=== PATIENT | female | born 1945 | race Two or more races ===

== ENCOUNTER 2019-06-27 09:47 | Inpatient (IN) | payer MEDICARE ==
[2019-06-27] MEDS ORDERED: NORMAL SALINE 1000 ML 1,000 ML IV ONE ×2 (10:15→13:52)
--- NOTE | 2019-06-27 10:17 | ER Document Report ---
ED Medical Screen (RME) - General Chief Complaint: Abdominal Pain Stated Complaint: ABDOMINAL PAIN/BACK PAIN Time Seen by Provider: 06/27/19 10:09 Mode of Arrival: Wheelchair Information source: Patient Notes: Patient is here visiting out of town and complains of right sided abdominal pain that started after midnight. Patient with nausea and subjective fever. No vomiting or diarrhea, no urinary symptoms. Patient does state pain radiates to the back area. Last bowel movement was 2 days ago. Patient does have a history of asthma and diabetes although has not checked her blood sugar recently as she did not have her replacement cartridge for monitor. I have greeted and performed a rapid initial assessment of this patient. A comprehensive ED assessment and evaluation of the patient, analysis of test results and completion of the medical decision making process will be conducted by additional ED providers. - Related Data Allergies/Adverse Reactions: Penicillins Allergy (Mild, Verified 06/27/19 10:02) Home Medications: Sulcrafate, panprazole, carvedilol, atorvastatin, montelukast, captopril, dignoxin, furosemide, gabapentin, lantus, humalog, aspirin, potassium citrate, linzess, zetia, tylenol 3, mucinex, pro air inhaler, zenpap, symbicort, nitrofurantin, metformin, trilicity, restasis, loratidine, folic acids, multi- vitamin, b-complex, calcium, vitamin D, B-6, biotin, vitamin C, Nitro - Obtained from medication list on grandchild's phone Past Medical History - Social History Chew tobacco use (# tins/day): No Frequency of alcohol use: None Drug Abuse: None Physical Exam - Vital signs Vitals: Temp Pulse Resp BP Pulse Ox 98.3 F 113 H 22 H 106/59 L 96 06/27/19 09:53 06/27/19 09:53 06/27/19 09:53 06/27/19 09:53 06/27/19 09:53 - Abdominal Tenderness: Tender - Right side abdomen Course - Vital Signs Vital signs: Temp Pulse Resp BP Pulse Ox 98.3 F 113 H 22 H 106/59 L 96 06/27/19 09:53 06/27/19 09:53 06/27/19 09:53 06/27/19 09:53 06/27/19 09:53
[2019-06-27 11:01] LABS: ALBUMIN 4.1 g/dL (3.5-5.0); ALKALINE PHOSPHATASE 100 U/L (38-126); ANION GAP 10 (5-19); ASPARTATE AMINO TRANSFERASE 42 U/L (14-36); BILIRUBIN,DIRECT 0.1 mg/dL (0.0-0.4); BILIRUBIN,TOTAL 0.9 mg/dL (0.2-1.3); BLOOD UREA NITROGEN 29 mg/dL (7-20); CALCIUM 9.4 mg/dL (8.4-10.2); CARBON DIOXIDE 27 mmol/L (22-30); CHLORIDE 106 mmol/L (98-107); GLUCOSE 221 mg/dL (75-110); HEMATOCRIT 38.6 % (36.0-47.0); MEAN CORPUSCULAR HEMOGLOBIN 29.5 pg (27.0-33.4); MEAN CORPUSCULAR HGB CONC 33.7 g/dL (32.0-36.0); MEAN CORPUSCULAR VOLUME 88 fl (80-97); PLATELET COUNT 192 10^3/uL (150-450); POTASSIUM 4.2 mmol/L (3.6-5.0); RED CELL DISTRIBUTION WIDTH 14.2 % (11.5-14.0); WHITE BLOOD COUNT 8.8 10^3/uL (4.0-10.5)
[2019-06-27 11:26] LABS: ABSOLUTE LYMPHOCYTES# (MANUAL) 0.5 10^3/uL (0.5-4.7); ABSOLUTE MONOCYTES # (MANUAL) 0.1 10^3/uL (0.1-1.4); BAND NEUTROPHILS % (MANUAL) 2 % (3-5); BASOPHILS % (MANUAL) 0 % (0-2); EOSINOPHILS % (MANUAL) 0 % (0-6); LYMPHOCYTES % (MANUAL) 5 % (13-45); MONOCYTES % (MANUAL) 1 % (3-13); SEGMENTED NEUTROPHILS % (MAN) 91 % (42-78); TOTAL CELLS COUNTED 100
[2019-06-27 11:30] LABS: ANISOCYTOSIS SLIGHT; PLATELET COMMENT ADEQUATE; SMUDGE CELLS PRESENT; TOXIC VACUOLATION PRESENT
--- NOTE | 2019-06-27 11:34 | RADIOLOGY REPORT (SQ) ---
EXAM DESCRIPTION: ACUTE ABDOMEN SERIES COMPLETED DATE/TIME: 06/27/2019 11:24 am REASON FOR STUDY: r side abd pain, flank pain COMPARISON: None. NUMBER OF VIEWS: Three views. TECHNIQUE: Frontal chest, supine abdomen and upright abdomen radiographic images acquired. LIMITATIONS: None. FINDINGS: CHEST: Lungs clear of infiltrates. Cardiac silhouette size, marika unremarkable. Left-side d pacemaker. FREE AIR: None. No abnormal gas collections. BOWEL GAS PATTERN: Nonspecific nonobstructive pattern with few air-filled small bowel loops in the le ft upper quadrant. Gas and stool in the colon. Air-fluid level in the stomach. CALCIFICATIONS: No suspicious calcifications. HARDWARE: Laparoscopic ventral hernia repair SOFT TISSUES: No gross mass or suggestion of organomegaly. BONES: Degenerative convex rightward lumbar curvature OTHER: No other significant finding. IMPRESSION: Nonspecific bowel gas pattern No focal infiltrates TECHNICAL DOCUMENTATION: JOB ID: [id number] [employer]- All Rights Reserved Reading location - IP/workstation name: [email or web address]
[2019-06-27] MEDS ORDERED: MORPHINE SULFATE 10 MG/ML INJ IV ONE (11:58)
[2019-06-27] MEDS ORDERED: ONDANSETRON HCL INJ/PF 4 MG/2 ML SDV IV ONE (11:58)
[2019-06-27 12:33] LABS: CREATINE KINASE 119 U/L (30-135); DIGOXIN 0.51 ng/mL (0.8-2.0)
[2019-06-27] MEDS ORDERED: NEOSTIGMINE METHYLSULFATE 10 MG/10 ML VIAL ONE (12:43)
[2019-06-27] MEDS ORDERED: GLYCOPYRROLATE 1 MG/5 ML VIAL ONE (12:43)
[2019-06-27] MEDS ORDERED: ROCURONIUM BROMIDE INJ 50 MG/5 ML VIAL IV ONE (12:43)
[2019-06-27] MEDS ORDERED: DEXAMETHASONE SOD PHOSPHATE INJ 4 MG/1 ML VIAL ONE (12:43)
[2019-06-27] MEDS ORDERED: SUCCINYLCHOLINE CHLORIDE INJ 200 MG/10 ML VIAL ONE (12:43)
[2019-06-27] MEDS ORDERED: ONDANSETRON HCL INJ/PF 4 MG/2 ML SDV ONE (12:43)
--- NOTE | 2019-06-27 12:47 | EKG REPORT ---
SEVERITY:- ABNORMAL ECG - ATRIAL-SENSED VENTRICULAR-PACED RHYTHM : Confirmed by: Geovanny Viramontes 27-Jun-2019 12:45:44
--- NOTE | 2019-06-27 13:22 | ER Document Report ---
Entered by JOE TORIBIO SCRIBE 06/27/19 1154 Acting as scribe for:BARB REINOSO MD ED GI/ - General Chief Complaint: Abdominal Pain Stated Complaint: ABDOMINAL PAIN/BACK PAIN Time Seen by Provider: 06/27/19 10:09 Mode of Arrival: Wheelchair Information source: Patient Notes: This 74-year-old female patient presents to the emergency department today with complaints of right-sided abdominal pain which began last night at around midnight. Patient is Vietnamese-speaking and is being translated by multiple family members at bedside. The patient is not a great historian so history is difficult to obtain. When reviewing external pharmacy records, it appears that the patient has been taking doxycycline since March 29, which the patient reports is for "her urine". Patient reports a history of kidney stones that have require both lithotripsy and an open procedure for removal in the past. - Related Data Allergies/Adverse Reactions: Penicillins Allergy (Mild, Verified 06/27/19 10:02) Home Medications: Sulcrafate, panprazole, carvedilol, atorvastatin, montelukast, captopril, dignoxin, furosemide, gabapentin, lantus, humalog, aspirin, potassium citrate, linzess, zetia, tylenol 3, mucinex, pro air inhaler, zenpap, symbicort, nitrofurantin, metformin, trilicity, restasis, loratidine, folic acids, multi- vitamin, b-complex, calcium, vitamin D, B-6, biotin, vitamin C, Nitro - Obtained from medication list on grandchild's phone Past Medical History - General Information source: Patient - Social History Smoking Status: Never Smoker Cigarette use (# per day): No Chew tobacco use (# tins/day): No Frequency of alcohol use: None Drug Abuse: None Lives with: Family Family History: Reviewed & Not Pertinent Patient has suicidal ideation: No Patient has homicidal ideation: No - Past Medical History Cardiac Medical History: Reports: Hx Heart Attack Pulmonary Medical History: Reports: Hx Asthma Endocrine Medical History: Reports: Hx Diabetes Mellitus Type 2 Renal/ Medical History: Reports: Hx Kidney Stones Musculoskeletal Medical History: Reports Hx Arthritis Past Surgical History: Reports: Hx Cardiac Surgery - Pacer, Hx Orthopedic Surgery - Bilateral Knee Replacement 2008 Review of Systems - Review of Systems Constitutional: See HPI, Other - feels warm EENT: No symptoms reported Cardiovascular: No symptoms reported Respiratory: No symptoms reported Gastrointestinal: See HPI, Abdominal pain Genitourinary: No symptoms reported Female Genitourinary: No symptoms reported Musculoskeletal: No symptoms reported Skin: No symptoms reported Hematologic/Lymphatic: No symptoms reported Neurological/Psychological: No symptoms reported -: Yes All other systems reviewed and negative Physical Exam - Vital signs Vitals: Temp Pulse Resp BP Pulse Ox 98.3 F 113 H 22 H 106/59 L 96 06/27/19 09:53 06/27/19 09:53 06/27/19 09:53 06/27/19 09:53 06/27/19 09:53 - Notes Notes: PHYSICAL EXAMINATION: GENERAL: Well-nourished, no acute distress, appears very uncomfortable. HEAD: Atraumatic, normocephalic. EYES: Pupils equal round and reactive to light, extraocular movements intact, sclera anicteric, conjunctiva are normal. ENT: nares patent, oropharynx clear without exudates. Moist mucous membranes. NECK: Normal range of motion, supple without lymphadenopathy LUNGS: Breath sounds clear to auscultation bilaterally and equal. No wheezes rales or rhonchi. HEART: Regular rate and rhythm without murmurs ABDOMEN: Soft, very active bowel sounds. Very tender to palpate the mid to lower right abdomen with guarding and some rebound. Right upper quadrant does not appear to be tender, but palpating in the right upper quadrant causes d iscomfort in the lower abdomen.. EXTREMITIES: Normal range of motion, no pitting or edema. No cyanosis. NEUROLOGICAL: Cranial nerves grossly intact. Normal speech. Normal sensory, motor, and reflex exams. PSYCH: Normal mood, normal affect. SKIN: Skin is very warm, will ask for a rectal temperature to be obtained. Diffuse vitiligo appearance. Course - Vital Signs Vital signs: Temp Pulse Resp BP Pulse Ox 101.2 F H 113 H 22 H 106/59 L 96 06/27/19 13:50 06/27/19 09:53 06/27/19 09:53 06/27/19 09:53 06/27/19 09:53 - Laboratory Result Diagrams: 06/27/19 10:35 06/27/19 10:35 Laboratory results interpreted by me: 06/27/19 06/27/19 06/27/19 10:32 10:35 10:35 RDW 14.2 H Seg Neuts % (Manual) 91 H Band Neutrophils % 2 L Lymphocytes % (Manual) 5 L Monocytes % (Manual) 1 L BUN 29 H Glucose 221 H POC Glucose 220 H AST 42 H Digoxin 06/27/19 10:35 RDW Seg Neuts % (Manual) Band Neutrophils % Lymphocytes % (Manual) Monocytes % (Manual) BUN Glucose POC Glucose AST Digoxin 0.51 L - Diagnostic Test Radiology reviewed: Image reviewed, Reports reviewed - AAS does not show acute pathology. - EKG Interpretation by Me EKG shows normal: Sinus rhythm, Ash, Intervals, QRS Complexes, ST-T Waves Rate: Normal - 90 Rhythm: Other - Atrial sensed ventricular paced rhythm Discharge - Discharge Scribe Attestation: 06/27/19 13:53 I personally performed the services described in the documentation, reviewed and edited the documentation which was dictated to the scribe in my presence, and it accurately records my words and actions. I personally performed the services described in the documentation, reviewed and edited the documentation which was dictated to the scribe in my presence, and it accurately records my words and actions.
[2019-06-27 14:06] LABS: APPEARANCE,URINE CLEAR; BILIRUBIN,URINE NEGATIVE (NEGATIVE); COLOR,URINE YELLOW; GLUCOSE, URINE NEGATIVE (NEGATIVE); KETONES,URINE NEGATIVE (NEGATIVE); LEUKOCYTE ESTERASE,URINE TRACE (NEGATIVE); NITRITE,URINE NEGATIVE (NEGATIVE); PROTEIN,URINE NEGATIVE (NEGATIVE); URINE SPECIFIC GRAVITY 1.018; UROBILINOGEN,URINE NEGATIVE mg/dL (<2.0)
[2019-06-27] MEDS ORDERED: ACETAMINOPHEN 650 MG SUPP.RECT PR ONE (15:28)
--- NOTE | 2019-06-27 16:03 | RADIOLOGY REPORT (SQ) ---
EXAM DESCRIPTION: CT ABD/PELVIS WITH IV ORAL COMPLETED DATE/TIME: 06/27/2019 3:35 pm REASON FOR STUDY: Right lower quadrant pain, fever, leukocytosis COMPARISON: None. TECHNIQUE: CT scan of the abdomen and pelvis performed using helical scanning technique with oral co ntrast and with dynamic intravenous contrast injection. Images reviewed with lung, soft tissue, and b one windows. Reconstructed coronal and sagittal MPR images reviewed. Delayed images for evaluation of the urinary system also acquired. All images stored on PACS. All CT scanners at this facility use dose modulation, iterative reconstruction, and/or weight based d osing when appropriate to reduce radiation dose to as low as reasonably achievable (ALARA). [facility]: Dose Right [facility]: CareDose [facility]: Dose Right [facility]: Teradose 4D [facility]: invendo medical CONTRAST TYPE AND DOSE: contrast/concentration: Isovue mg/ml; Total Contrast Delivered: 83.0 ml; To alec Saline Delivered: 69.0 ml RENAL FUNCTION: BUN 29 creatinine 0.88. RADIATION DOSE: CT Rad equipment meets quality standard of care and radiation dose reduction techniq ues were employed. CTDIvol: 7.9 - 10.9 mGy. DLP: 1027 mGy-cm.. LIMITATIONS: None. FINDINGS: LOWER CHEST: No significant findings. No nodules or infiltrates. LIVER: Normal size. No masses. No dilated ducts. SPLEEN: Normal size. No focal lesions. PANCREAS: No masses. No significant calcifications. No adjacent inflammation or peripancreatic fluid collections. Pancreatic duct not dilated. GALLBLADDER: No identified stones by CT criteria. No inflammatory changes to suggest cholecystitis. ADRENAL GLANDS: 1 x 1.5 cm right adrenal nodule. RIGHT KIDNEY AND URETER: No solid masses. Small calcifications. No hydronephrosis or hydroureter. LEFT KIDNEY AND URETER: No solid masses. Cortical scarring. Small calcifications. No hydronephro sis or hydroureter. AORTA AND VESSELS: No aneurysm. No dissection. Renal arteries, SMA, celiac without stenosis. RETROPERITONEUM: No retroperitoneal adenopathy, hemorrhage or masses. BOWEL AND PERITONEAL CAVITY: No masses or inflammatory changes. No free fluid or peritoneal masses. APPENDIX: The appendix is slightly thickened, measuring 9.6 cm (axial series 3, image 71). On rainey l series 601, image 27 there is suggestion of mild inflammation. No abnormal fluid collection. PELVIS: No mass. No free fluid. Normal bladder. ABDOMINAL WALL: No masses. No hernias. Surgical mesh. BONES: No significant or acute findings. Degenerative changes in the spine. OTHER: No other significant finding. IMPRESSION: 1. THE APPENDIX IS SLIGHTLY THICKENED. POSSIBLE MILD PERIAPPENDICEAL INFLAMMATION. FINDINGS ARE SUG GESTIVE OF MILD EARLY APPENDICITIS. NO EVIDENCE OF PERFORATION OR ABSCESS. 2. NONOBSTRUCTING CALCULI IN THE KIDNEYS. CHRONIC SCARRING OF THE LEFT KIDNEY. 3. RIGHT ADRENAL NODULE. NONSPECIFIC. 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 4. OTHER CHRONIC FINDINGS ABOVE. NO OTHER SIGNIFICANT OR ACUTE FINDING IN THE ABDOMEN OR PELVIS O N CT SCAN WITH ORAL AND IV CONTRAST. TECHNICAL DOCUMENTATION: JOB ID: [id number] Quality ID # [id number]: Final reports with documentation of one or more dose reduction techniques (e.g., Au tomated exposure control, adjustment of the mA and/or kV according to patient size, use of iterative reconstruction technique) 2010 [employer]- All Rights Reserved Reading location - IP/workstation name: [email or web address]
[2019-06-27] MEDS ORDERED: LEVOFLOXACIN 750 MG/D5W RTU 750 MG/150 ML RTUPB IV ONE (16:36)
--- NOTE | 2019-06-27 17:47 | PDOC H&P ---
History of Present Illness Patient complains of: Abdominal pain History of Present Illness: HETAL MANUEL is a 74 year old female presenting with a 1 day history of acute onset right lower quadrant abdominal pain along with nausea and fever. Patient began to experience this pain last night and it has persisted and therefore she came in through the ER. The pain has decreased since being given narcotics. Patient had a similar episode of this pain several months ago and was apparently hospitalized and was noted with constipation on CT as per the patient's family. She was treated with Linzess. She has suffer from constipation for a number of years. She has had a colonoscopy done 3 years ago followed by another one 1 year ago and was noted with polyps on both of those colonoscopies. She does have a family history of colon cancer in her sister who in her 80s with colon cancer. Patient has noticed occasional blood per rectum with hard bowel movements in the past. 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 History of asthma but no history of cigarette smoking abuse. Past Medical History Cardiac Medical History: Reports: Coronary Artery Disease, Other - Pacemaker dependence Pulmonary Medical History: Reports: Asthma Endocrine Medical History: Reports: Diabetes Mellitus Type 2 Musculoskeltal Medical History: Reports: Arthritis Past Surgical History Past Surgical History: Reports: Hysterectomy, Orthopedic Surgery - Bilateral Knee Replacement 2008, Other - Abdominal plasty. Multiple interventions for kidney stones. Social History Lives with: Family Smoking Status: Never Smoker Electronic Cigarette use?: No Frequency of Alcohol Use: None Hx Recreational Drug Use: No Drugs: None Family History Family History: Reviewed & Not Pertinent Parental Family History Reviewed: Yes - Mother with breast cancer, father with liver cancer Children Family History Reviewed: Yes Sibling(s) Family History Reviewed.: Yes - Sister with colon cancer in her 80s. Medication/Allergy Allergies/Adverse Reactions: Penicillins Allergy (Mild, Verified 06/27/19 10:02) Review of Systems Constitutional: PRESENT: fever(s), weight loss - About 40 pound weight loss over the past several years. Gradual secondary to some eating habit changes Cardiovascular: PRESENT: as per HPI Respiratory: PRESENT: as per HPI - No current shortness of breath nor chest pain Genitourinary: PRESENT: as per HPI - Multiple episodes of kidney stones. Musculoskeletal: PRESENT: back pain Neurological: PRESENT: weakness Endocrine: PRESENT: other - History of what sounds like hypothyroidism in the past Physical Exam Vital Signs: Temp Pulse Resp BP Pulse Ox 101.2 F H 113 H 22 H 106/59 L 96 06/27/19 13:50 06/27/19 09:53 06/27/19 09:53 06/27/19 09:53 06/27/19 09:53 Intake & Output 06/26/19 06/27/19 06/28/19 06:59 06:59 06:59 Intake Total 1000 Balance 1000 Weight 72.575 kg General appearance: PRESENT: no acute distress, cooperative Eye exam: PRESENT: conjunctiva pink Neck exam: PRESENT: other - Supple with no masses and no tenderness Respiratory exam: PRESENT: clear to auscultation wilver Cardiovascular exam: PRESENT: RRR Pulses: PRESENT: normal radial pulses GI/Abdominal exam: PRESENT: other - Soft, nondistended, focal tenderness to palpation in the right lower quadrant with rebound and percussion tenderness. Extremities exam: PRESENT: other - No swelling and no tenderness Neurological exam: PRESENT: alert, awake, other - 5+ strength in all 4 extremities. Psychiatric exam: PRESENT: appropriate affect Skin exam: PRESENT: warm Results Laboratory Results: 06/27/19 10:35 06/27/19 10:35 06/27/19 06/27/19 06/27/19 10:35 10:35 13:40 WBC 8.8 RBC 4.40 Hgb 13.0 Hct 38.6 MCV 88 MCH 29.5 MCHC 33.7 RDW 14.2 H Plt Count 192 Seg Neutrophils % Not Reportable Sodium 143.3 Potassium 4.2 Chloride 106 Carbon Dioxide 27 Anion Gap 10 BUN 29 H Creatinine 0.88 Est GFR ( Amer) > 60 Glucose 221 H Calcium 9.4 Total Bilirubin 0.9 AST 42 H Alkaline Phosphatase 100 Total Protein 7.0 Albumin 4.1 Lipase 93.7 Urine Color YELLOW Urine Appearance CLEAR Urine pH 5.0 Ur Specific [place] 1.018 Urine Protein NEGATIVE Urine Glucose (UA) NEGATIVE Urine Ketones NEGATIVE Urine Blood NEGATIVE Urine Nitrite NEGATIVE Ur Leukocyte Esterase TRACE H Urine WBC (Auto) 3 Urine RBC (Auto) 0 06/27/19 06/27/19 10:35 10:35 Creatine Kinase 119 Troponin I < 0.012 Impressions: Acute Abdomen Series 06/27/19 10:15 IMPRESSION: Nonspecific bowel gas pattern No focal infiltrates Abdomen/Pelvis CT 06/27/19 11:55 IMPRESSION: 1. THE APPENDIX IS SLIGHTLY THICKENED. POSSIBLE MILD PERIAPPENDICEAL INFLAMMATION. FINDINGS ARE SUGGESTIVE OF MILD EARLY APPENDICITIS. NO EVIDENCE OF PERFORATION OR ABSCESS. 2. NONOBSTRUCTING CALCULI IN THE KIDNEYS. CHRONIC SCARRING OF THE LEFT KIDNEY. 3. RIGHT ADRENAL NODULE. NONSPECIFIC. 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 4. OTHER CHRONIC FINDINGS ABOVE. NO OTHER SIGNIFICANT OR ACUTE FINDING IN THE ABDOMEN OR PELVIS ON CT SCAN WITH ORAL AND IV CONTRAST. Assessment & Plan - Diagnosis (1) Appendicitis Qualifiers: Appendicitis type: acute appendicitis Is this a current diagnosis for this admission?: Yes Plan: Although unusual in this age group, CT scan and exam all consistent with acute appendicitis. The fact that she had a colonoscopy 1 year ago argues against atypical presentation of cecal cancer. We will proceed with laparoscopic appendectomy possible open appendectomy. I have had a long discussion with the patient via her family who acted as interpreters, about the risk and benefits of the surgery including risk of infection, bleeding, adjacent structure injury, heart lung and stroke complications, stump leak. They understand and agree to proceed.
[2019-06-27] MEDS ORDERED: BUPIVACAINE HCL 0.25 % INJ/PF (2.5 MG/1 ML) 30 ML VIAL ONE (17:56)
[2019-06-27] MEDS ORDERED: METRONIDAZOLE 500 MG/NS RTU 500 MG/100 ML RTUPB IV ONE (18:00)
[2019-06-27] MEDS ORDERED: GLUCAGON,HUMAN RECOMB 1 MG INJ IM PRN (18:08)
[2019-06-27] MEDS ORDERED: DEXTROSE 50%-WATER 25 GM/50 ML DISP.SYRIN IV PRN ×4 (18:08→20:29)
[2019-06-27] MEDS ORDERED: DEXTROSE 40% GEL 15 GM TUBE PO PRN ×4 (18:08→20:29)
[2019-06-27] MEDS ORDERED: MIDAZOLAM 2 MG/2 ML INJ ONE (18:15)
[2019-06-27] MEDS ORDERED: PROPOFOL INJ 200 MG/20 ML VIAL IV ONE (18:15)
[2019-06-27] MEDS ORDERED: HYDROMORPHONE HCL INJ/PF 2 MG/ML AMPULE ONE (18:15)
[2019-06-27] MEDS ORDERED: FENTANYL CITRATE INJ/PF 100 MCG/2 ML AMPUL ONE (18:15)
--- NOTE | 2019-06-27 18:16 | PDOC CONSULTATION ---
Consultation Consult Date: 06/27/19 Attending physician:: USHA KAPADIA Provider Consulted: FRANKLIN LENZ Consult reason:: Medical management History of Present Illness Admission Date/PCP: 06/27/19 17:53 No primary care Patient complains of: Abdominal pain, nausea vomiting History of Present Illness: HETAL MANUEL is a 74 year old female Past Medical History Cardiac Medical History: Reports: Coronary Artery Disease, Myocardial Infarction, Other - Pacemaker dependence Pulmonary Medical History: Reports: Asthma Endocrine Medical History: Reports: Diabetes Mellitus Type 2 Musculoskeltal Medical History: Reports: Arthritis Past Surgical History Past Surgical History: Reports: Hysterectomy, Orthopedic Surgery - Bilateral Knee Replacement 2008, Other - Abdominal plasty. Multiple interventions for kidney stones. Social History Information Source: Patient Lives with: Family Smoking Status: Never Smoker Electronic Cigarette use?: No Frequency of Alcohol Use: None Hx Recreational Drug Use: No Drugs: None Hx Prescription Drug Abuse: No - Advance Directive Resuscitation Status: Full Code Family History Family History: Other - Liver cancer, breast cancer Parental Family History Reviewed: Yes Children Family History Reviewed: Yes Sibling(s) Family History Reviewed.: Yes Medication/Allergy Allergies/Adverse Reactions: Penicillins Allergy (Mild, Verified 06/27/19 10:02) Review of Systems Constitutional: ABSENT: chills, fever(s), headache(s), weight gain, weight loss Eyes: ABSENT: visual disturbances Ears: ABSENT: hearing changes Cardiovascular: ABSENT: chest pain, dyspnea on exertion, edema, orthropnea, palpitations Respiratory: ABSENT: cough, hemoptysis Gastrointestinal: PRESENT: abdominal pain, nausea, vomiting. ABSENT: constipation, diarrhea, hematemesis, hematochezia Genitourinary: ABSENT: dysuria, hematuria Musculoskeletal: ABSENT: joint swelling Integumentary: ABSENT: rash, wounds Neurological: ABSENT: abnormal gait, abnormal speech, confusion, dizziness, focal weakness, syncope Psychiatric: ABSENT: anxiety, depression, homidical ideation, suicidal ideation Endocrine: ABSENT: cold intolerance, heat intolerance, polydipsia, polyuria Hematologic/Lymphatic: ABSENT: easy bleeding, easy bruising Physical Exam Vital Signs: Temp Pulse Resp BP Pulse Ox 98.1 F 75 18 130/54 H 97 06/27/19 17:00 06/27/19 17:00 06/27/19 17:00 06/27/19 17:00 06/27/19 17:00 Intake & Output 06/26/19 06/27/19 06/28/19 06:59 06:59 06:59 Intake Total 1000 Balance 1000 Weight 72.575 kg General appearance: PRESENT: no acute distress, well-developed, well-nourished Head exam: PRESENT: atraumatic, normocephalic Eye exam: PRESENT: conjunctiva pink, EOMI, PERRLA. ABSENT: scleral icterus Ear exam: PRESENT: normal external ear exam Mouth exam: PRESENT: moist, tongue midline Neck exam: ABSENT: carotid bruit, JVD, lymphadenopathy, thyromegaly Respiratory exam: PRESENT: clear to auscultation wilver. ABSENT: rales, rhonchi, wheezes Cardiovascular exam: PRESENT: RRR. ABSENT: diastolic murmur, rubs, systolic murmur Pulses: PRESENT: normal dorsalis pedis pul Vascular exam: PRESENT: normal capillary refill GI/Abdominal exam: PRESENT: firm, hypoactive bowel sounds, normal bowel sounds, rebound, tenderness. ABSENT: distended, guarding, mass, organolmegaly Rectal exam: PRESENT: deferred Extremities exam: PRESENT: full ROM. ABSENT: calf tenderness, clubbing, pedal edema Neurological exam: PRESENT: alert, awake, oriented to person, oriented to place, oriented to time, oriented to situation, CN II-XII grossly intact. ABSENT: motor sensory deficit Psychiatric exam: PRESENT: appropriate affect, normal mood. ABSENT: homicidal ideation, suicidal ideation Skin exam: PRESENT: dry, intact, warm. ABSENT: cyanosis, rash Results Laboratory Results: 06/27/19 10:35 06/27/19 10:35 06/27/19 06/27/19 06/27/19 10:35 10:35 13:40 WBC 8.8 RBC 4.40 Hgb 13.0 Hct 38.6 MCV 88 MCH 29.5 MCHC 33.7 RDW 14.2 H Plt Count 192 Seg Neutrophils % Not Reportable Sodium 143.3 Potassium 4.2 Chloride 106 Carbon Dioxide 27 Anion Gap 10 BUN 29 H Creatinine 0.88 Est GFR ( Amer) > 60 Glucose 221 H Calcium 9.4 Total Bilirubin 0.9 AST 42 H Alkaline Phosphatase 100 Total Protein 7.0 Albumin 4.1 Lipase 93.7 Urine Color YELLOW Urine Appearance CLEAR Urine pH 5.0 Ur Specific [place] 1.018 Urine Protein NEGATIVE Urine Glucose (UA) NEGATIVE Urine Ketones NEGATIVE Urine Blood NEGATIVE Urine Nitrite NEGATIVE Ur Leukocyte Esterase TRACE H Urine WBC (Auto) 3 Urine RBC (Auto) 0 06/27/19 06/27/19 10:35 10:35 Creatine Kinase 119 Troponin I < 0.012 Impressions: Acute Abdomen Series 06/27/19 10:15 IMPRESSION: Nonspecific bowel gas pattern No focal infiltrates Abdomen/Pelvis CT 06/27/19 11:55 IMPRESSION: 1. THE APPENDIX IS SLIGHTLY THICKENED. POSSIBLE MILD PERIAPPENDICEAL INFLAMMATION. FINDINGS ARE SUGGESTIVE OF MILD EARLY APPENDICITIS. NO EVIDENCE OF PERFORATION OR ABSCESS. 2. NONOBSTRUCTING CALCULI IN THE KIDNEYS. CHRONIC SCARRING OF THE LEFT KIDNEY. 3. RIGHT ADRENAL NODULE. NONSPECIFIC. 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 4. OTHER CHRONIC FINDINGS ABOVE. NO OTHER SIGNIFICANT OR ACUTE FINDING IN THE ABDOMEN OR PELVIS ON CT SCAN WITH ORAL AND IV CONTRAST. Assessment and Plan - Diagnosis (1) Appendicitis Qualifiers: Appendicitis type: acute appendicitis Is this a current diagnosis for this admission?: Yes Plan: 06/27/2019-going to [place] [facility] for laparoscopic appendectomy. We will follow-up after appendectomy for medical management (2) Abdominal pain Is this a current diagnosis for this admission?: Yes Plan: 06/27/2019-Dilaudid 0.5 mg IV every 3 hours as needed. Tylenol and Toradol as needed. (3) Type 2 diabetes mellitus Is this a current diagnosis for this admission?: Yes Plan: 06/27/2019-A1c in a.m. Sliding scale insulin before meals and at bedtime with a carbohydrate controlled diet after patient has returned from the OR we will continue all home medications at that time 2. (4) Nausea & vomiting Is this a current diagnosis for this admission?: Yes Plan: 06/27/2019 Zofran 4 mill grams IV every 8 hours as needed (5) UTI (urinary tract infection) Is this a current diagnosis for this admission?: Yes Plan: 06/27/2019-Levaquin 750 mg IV daily await urine cultures - Time Time Spent with patient: 35 or more minutes - Inpatient Certification Based on my medical assessment, after consideration of the patient's comorbidities, presenting symptoms, or acuity I expect that the services needed warrant INPATIENT care.: Yes I certify that my determination is in accordance with my understanding of Medicare's requirements for reasonable and necessary INPATIENT services [42 CFR 412.3e].: Yes Medical Necessity: Need for Pain Control, Need for IV Antibiotics, Need for Surgery
[2019-06-27] MEDS ORDERED: DIPHENHYDRAMINE HCL 50 MG/ML VIAL IV PRN (19:00)
[2019-06-27] MEDS ORDERED: FENTANYL CITRATE INJ/PF 100 MCG/2 ML AMPUL IV PRN ×2 (19:00)
[2019-06-27] MEDS ORDERED: PROMETHAZINE HCL INJ 25 MG/1 ML VIAL IV PRN (19:00)
[2019-06-27] MEDS ORDERED: MEPERIDINE HCL/PF INJ 25 MG/1 ML DISP.SYRIN IV PRN (19:00)
[2019-06-27] MEDS ORDERED: GLUCAGON,HUMAN RECOMB 1 MG INJ SUBCUT PRN (20:29)
[2019-06-27] MEDS ORDERED: ONDANSETRON HCL INJ/PF 4 MG/2 ML SDV IV PRN (20:29)
[2019-06-27] MEDS ORDERED: MORPHINE SULFATE 10 MG/ML INJ IV PRN (20:29)
[2019-06-27] MEDS: METRONIDAZOLE 500 MG/NS RTU 500 MG/100 ML RTUPB IV SCH (22:19)
[2019-06-27] MEDS: NORMAL SALINE 1000 ML 1,000 ML IV PRN (22:22)
[2019-06-27] MEDS ORDERED: INSULIN REG, HUMAN 100 UNIT/ML 3 ML VIAL (PYX) SUBCUT ONE (23:15)
--- NOTE | 2019-06-27 23:43 | PDOC PROGRESS REPORT ---
Subjective Progress Note for:: 06/27/19 Subjective:: Feels better. Less pain. Reason For Visit: APPENDICITIS Physical Exam Vital Signs: Temp Pulse Resp BP Pulse Ox 97.9 F 62 12 132/57 H 98 06/27/19 21:45 06/27/19 21:45 06/27/19 21:45 06/27/19 21:45 06/27/19 21:45 Intake & Output 06/26/19 06/27/19 06/28/19 06:59 06:59 06:59 Intake Total 4650 Output Total 550 Balance 4100 Weight 77.9 kg General appearance: PRESENT: no acute distress, cooperative Respiratory exam: PRESENT: clear to auscultation wilver Cardiovascular exam: PRESENT: RRR GI/Abdominal exam: PRESENT: other - Soft, nondistended, very mild right lower quadrant abdominal tenderness much improved from her preoperative exam. Results Laboratory Results: 06/27/19 10:35 06/27/19 10:35 06/27/19 06/27/19 06/27/19 10:35 10:35 13:40 WBC 8.8 RBC 4.40 Hgb 13.0 Hct 38.6 MCV 88 MCH 29.5 MCHC 33.7 RDW 14.2 H Plt Count 192 Seg Neutrophils % Not Reportable Sodium 143.3 Potassium 4.2 Chloride 106 Carbon Dioxide 27 Anion Gap 10 BUN 29 H Creatinine 0.88 Est GFR ( Amer) > 60 Glucose 221 H Calcium 9.4 Total Bilirubin 0.9 AST 42 H Alkaline Phosphatase 100 Total Protein 7.0 Albumin 4.1 Lipase 93.7 Urine Color YELLOW Urine Appearance CLEAR Urine pH 5.0 Ur Specific [place] 1.018 Urine Protein NEGATIVE Urine Glucose (UA) NEGATIVE Urine Ketones NEGATIVE Urine Blood NEGATIVE Urine Nitrite NEGATIVE Ur Leukocyte Esterase TRACE H Urine WBC (Auto) 3 Urine RBC (Auto) 0 06/27/19 06/27/19 10:35 10:35 Creatine Kinase 119 Troponin I < 0.012 Impressions: Acute Abdomen Series 06/27/19 10:15 IMPRESSION: Nonspecific bowel gas pattern No focal infiltrates Abdomen/Pelvis CT 06/27/19 11:55 IMPRESSION: 1. THE APPENDIX IS SLIGHTLY THICKENED. POSSIBLE MILD PERIAPPENDICEAL INFLAMMATION. FINDINGS ARE SUGGESTIVE OF MILD EARLY APPENDICITIS. NO EVIDENCE OF PERFORATION OR ABSCESS. 2. NONOBSTRUCTING CALCULI IN THE KIDNEYS. CHRONIC SCARRING OF THE LEFT KIDNEY. 3. RIGHT ADRENAL NODULE. NONSPECIFIC. 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 4. OTHER CHRONIC FINDINGS ABOVE. NO OTHER SIGNIFICANT OR ACUTE FINDING IN THE ABDOMEN OR PELVIS ON CT SCAN WITH ORAL AND IV CONTRAST. Assessment & Plan - Diagnosis (1) Appendicitis Qualifiers: Appendicitis type: acute appendicitis Is this a current diagnosis for this admission?: Yes Plan: Status post laparoscopic appendectomy. Patient looks good. Will likely start a diet in the morning. - Time Time Spent with patient: Less than 15 minutes
[2019-06-28] MEDS: METRONIDAZOLE 500 MG/NS RTU 500 MG/100 ML RTUPB IV SCH ×4 (03:18→21:33)
[2019-06-28 05:18] LABS: HEMATOCRIT 30.8 % (36.0-47.0); MEAN CORPUSCULAR HEMOGLOBIN 29.7 pg (27.0-33.4); MEAN CORPUSCULAR HGB CONC 34.1 g/dL (32.0-36.0); MEAN CORPUSCULAR VOLUME 87 fl (80-97); RED BLOOD COUNT 3.54 10^6/uL (3.72-5.28); RED CELL DISTRIBUTION WIDTH 14.3 % (11.5-14.0); WHITE BLOOD COUNT 12.7 10^3/uL (4.0-10.5)
[2019-06-28 05:35] LABS: HEMOGLOBIN 10.5 g/dL (12.0-15.5); PLATELET COUNT 137 10^3/uL (150-450)
[2019-06-28 05:38] LABS: ANION GAP 8 (5-19); BLOOD UREA NITROGEN 26 mg/dL (7-20); CARBON DIOXIDE 24 mmol/L (22-30); CHLORIDE 109 mmol/L (98-107); GLUCOSE 218 mg/dL (75-110); PHOSPHORUS 3.4 mg/dL (2.5-4.5); POTASSIUM 4.1 mmol/L (3.6-5.0)
[2019-06-28] MEDS: CIPROFLOXACIN 400 MG/D5W RTU 400 MG/200 ML RTUPB IV SCH ×2 (05:43→18:15)
[2019-06-28] MEDS: NORMAL SALINE 1000 ML 1,000 ML IV PRN (07:05)
[2019-06-28] MEDS ORDERED: CALCIUM GLUCONATE 1,000 MG in DEXTROSE 5%-WATER 50 ML IV ONE (08:00)
--- NOTE | 2019-06-28 08:03 | PDOC PROGRESS REPORT ---
Subjective Progress Note for:: 06/28/19 Subjective:: 06/28/2019-no complaints this a.m. Reason For Visit: APPENDICITIS Physical Exam Vital Signs: Temp Pulse Resp BP Pulse Ox 97.7 F 81 17 99/44 L 98 06/28/19 03:07 06/28/19 03:07 06/28/19 03:07 06/28/19 03:07 06/28/19 03:07 Intake & Output 06/27/19 06/28/19 06/29/19 06:59 06:59 06:59 Intake Total 4750 872 Output Total 550 Balance 4200 872 Weight 77.9 kg General appearance: PRESENT: no acute distress, well-developed, well-nourished Neck exam: ABSENT: carotid bruit, JVD, lymphadenopathy, thyromegaly Respiratory exam: PRESENT: clear to auscultation wilver. ABSENT: rales, rhonchi, wheezes Cardiovascular exam: PRESENT: RRR. ABSENT: diastolic murmur, rubs, systolic murmur Pulses: PRESENT: +1 pedal pulses bilateral Vascular exam: PRESENT: normal capillary refill GI/Abdominal exam: PRESENT: hypoactive bowel sounds, tenderness, other - Surgical dressing clean dry and intact Extremities exam: PRESENT: full ROM. ABSENT: calf tenderness, clubbing, pedal edema Neurological exam: PRESENT: alert, awake, oriented to person, oriented to place, oriented to time, oriented to situation, CN II-XII grossly intact. ABSENT: motor sensory deficit Psychiatric exam: PRESENT: appropriate affect, normal mood. ABSENT: homicidal ideation, suicidal ideation Skin exam: PRESENT: dry, intact, warm. ABSENT: cyanosis, rash Results Laboratory Results: 06/28/19 04:36 06/28/19 04:36 06/27/19 06/27/19 06/27/19 10:35 10:35 13:40 WBC 8.8 RBC 4.40 Hgb 13.0 Hct 38.6 MCV 88 MCH 29.5 MCHC 33.7 RDW 14.2 H Plt Count 192 Seg Neutrophils % Not Reportable Sodium 143.3 Potassium 4.2 Chloride 106 Carbon Dioxide 27 Anion Gap 10 BUN 29 H Creatinine 0.88 Est GFR ( Amer) > 60 Glucose 221 H Calcium 9.4 Phosphorus Magnesium Total Bilirubin 0.9 AST 42 H Alkaline Phosphatase 100 Total Protein 7.0 Albumin 4.1 Lipase 93.7 Urine Color YELLOW Urine Appearance CLEAR Urine pH 5.0 Ur Specific [place] 1.018 Urine Protein NEGATIVE Urine Glucose (UA) NEGATIVE Urine Ketones NEGATIVE Urine Blood NEGATIVE Urine Nitrite NEGATIVE Ur Leukocyte Esterase TRACE H Urine WBC (Auto) 3 Urine RBC (Auto) 0 06/28/19 06/28/19 04:36 04:36 WBC 12.7 H RBC 3.54 L Hgb 10.5 L D Hct 30.8 L MCV 87 MCH 29.7 MCHC 34.1 RDW 14.3 H Plt Count 137 L Seg Neutrophils % Sodium 140.8 Potassium 4.1 Chloride 109 H Carbon Dioxide 24 Anion Gap 8 BUN 26 H Creatinine 0.82 Est GFR ( Amer) > 60 Glucose 218 H Calcium 8.0 L Phosphorus 3.4 Magnesium 1.8 Total Bilirubin AST Alkaline Phosphatase Total Protein Albumin Lipase Urine Color Urine Appearance Urine pH Ur Specific [place] Urine Protein Urine Glucose (UA) Urine Ketones Urine Blood Urine Nitrite Ur Leukocyte Esterase Urine WBC (Auto) Urine RBC (Auto) 06/27/19 06/27/19 10:35 10:35 Creatine Kinase 119 Troponin I < 0.012 Impressions: Acute Abdomen Series 06/27/19 10:15 IMPRESSION: Nonspecific bowel gas pattern No focal infiltrates Abdomen/Pelvis CT 06/27/19 11:55 IMPRESSION: 1. THE APPENDIX IS SLIGHTLY THICKENED. POSSIBLE MILD PERIAPPENDICEAL INFLAMMATION. FINDINGS ARE SUGGESTIVE OF MILD EARLY APPENDICITIS. NO EVIDENCE OF PERFORATION OR ABSCESS. 2. NONOBSTRUCTING CALCULI IN THE KIDNEYS. CHRONIC SCARRING OF THE LEFT KIDNEY. 3. RIGHT ADRENAL NODULE. NONSPECIFIC. 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 4. OTHER CHRONIC FINDINGS ABOVE. NO OTHER SIGNIFICANT OR ACUTE FINDING IN THE ABDOMEN OR PELVIS ON CT SCAN WITH ORAL AND IV CONTRAST. Assessment and Plan - Diagnosis (1) Appendicitis Qualifiers: Appendicitis type: acute appendicitis Is this a current diagnosis for this admission?: Yes Plan: 06/27/2019-going to OR tonight for laparoscopic appendectomy. We will follow-up after appendectomy for medical management 06/28/2019-laparoscopic appendectomy yesterday. Appears to be doing well this morning. Will start diet and physical therapy. Await further recognitions per surgery. (2) Abdominal pain Is this a current diagnosis for this admission?: Yes Plan: 06/27/2019-Dilaudid 0.5 mg IV every 3 hours as needed. Tylenol and Toradol as needed. 06/28/2019-continue Dilaudid and morphine as needed (3) Type 2 diabetes mellitus Is this a current diagnosis for this admission?: Yes Plan: 06/27/2019-A1c in a.m. Sliding scale insulin before meals and at bedtime with a carbohydrate controlled diet after patient has returned from the OR we will continue all home medications at that time 2. 06/28/2019-A1c is 7.0. Continue carbohydrate controlled diet sliding scale insulin. Will place patient on appropriate oral antidiabetic medication at that time. (4) Nausea & vomiting Is this a current diagnosis for this admission?: Yes Plan: 06/27/2019 Zofran 4 mill grams IV every 8 hours as needed 06/28/2019-continue Zofran as needed (5) UTI (urinary tract infection) Is this a current diagnosis for this admission?: Yes Plan: 06/27/2019-Levaquin 750 mg IV daily await urine cultures 06/28/2019-continue Cipro twice daily - Time Time Spent with patient: 15-24 minutes - Inpatient Certification Based on my medical assessment, after consideration of the patient's comorbidities, presenting symptoms, or acuity I expect that the services needed warrant INPATIENT care.: Yes I certify that my determination is in accordance with my understanding of Medicare's requirements for reasonable and necessary INPATIENT services [42 CFR 412.3e].: Yes Medical Necessity: Need for Pain Control, Need for IV Antibiotics
[2019-06-28] MEDS: HYDROMORPHONE HCL INJ/PF 2 MG/ML AMPULE IV PRN ×2 (08:08→16:31)
[2019-06-28] MEDS: INSULIN REG, HUMAN 100 UNIT/ML 3 ML VIAL (PYX) SUBCUT SCH ×4 (08:16→21:33)
[2019-06-28] MEDS ORDERED: CALCIUM GLUCONATE 1000 MG/10 ML INJ IV ONE (09:00)
--- NOTE | 2019-06-28 10:16 | PDOC PROGRESS REPORT ---
Subjective Progress Note for:: 06/28/19 Subjective:: Feels much better. No nausea. A little bit hungry. Unable to urinate but has urgency. Reason For Visit: APPENDICITIS Physical Exam Vital Signs: Temp Pulse Resp BP Pulse Ox 97.7 F 68 20 127/58 H 99 06/28/19 08:10 06/28/19 08:10 06/28/19 08:10 06/28/19 08:10 06/28/19 08:10 Intake & Output 06/27/19 06/28/19 06/29/19 06:59 06:59 06:59 Intake Total 4750 1072 Output Total 550 Balance 4200 1072 Weight 77.9 kg General appearance: PRESENT: no acute distress, cooperative Respiratory exam: PRESENT: clear to auscultation wilver Cardiovascular exam: PRESENT: RRR GI/Abdominal exam: PRESENT: other - Soft, nondistended, very mild abdominal tenderness much improved from preoperative exam. Wounds are clean dry and intact. Extremities exam: PRESENT: other - Mild generalized edema. Results Laboratory Results: 06/28/19 04:36 06/28/19 04:36 06/27/19 06/27/19 06/27/19 10:35 10:35 13:40 WBC 8.8 RBC 4.40 Hgb 13.0 Hct 38.6 MCV 88 MCH 29.5 MCHC 33.7 RDW 14.2 H Plt Count 192 Seg Neutrophils % Not Reportable Sodium 143.3 Potassium 4.2 Chloride 106 Carbon Dioxide 27 Anion Gap 10 BUN 29 H Creatinine 0.88 Est GFR ( Amer) > 60 Glucose 221 H Calcium 9.4 Phosphorus Magnesium Total Bilirubin 0.9 AST 42 H Alkaline Phosphatase 100 Total Protein 7.0 Albumin 4.1 Lipase 93.7 Urine Color YELLOW Urine Appearance CLEAR Urine pH 5.0 Ur Specific [place] 1.018 Urine Protein NEGATIVE Urine Glucose (UA) NEGATIVE Urine Ketones NEGATIVE Urine Blood NEGATIVE Urine Nitrite NEGATIVE Ur Leukocyte Esterase TRACE H Urine WBC (Auto) 3 Urine RBC (Auto) 0 06/28/19 06/28/19 04:36 04:36 WBC 12.7 H RBC 3.54 L Hgb 10.5 L D Hct 30.8 L MCV 87 MCH 29.7 MCHC 34.1 RDW 14.3 H Plt Count 137 L Seg Neutrophils % Sodium 140.8 Potassium 4.1 Chloride 109 H Carbon Dioxide 24 Anion Gap 8 BUN 26 H Creatinine 0.82 Est GFR ( Amer) > 60 Glucose 218 H Calcium 8.0 L Phosphorus 3.4 Magnesium 1.8 Total Bilirubin AST Alkaline Phosphatase Total Protein Albumin Lipase Urine Color Urine Appearance Urine pH Ur Specific [place] Urine Protein Urine Glucose (UA) Urine Ketones Urine Blood Urine Nitrite Ur Leukocyte Esterase Urine WBC (Auto) Urine RBC (Auto) 06/27/19 06/27/19 10:35 10:35 Creatine Kinase 119 Troponin I < 0.012 Impressions: Acute Abdomen Series 06/27/19 10:15 IMPRESSION: Nonspecific bowel gas pattern No focal infiltrates Abdomen/Pelvis CT 06/27/19 11:55 IMPRESSION: 1. THE APPENDIX IS SLIGHTLY THICKENED. POSSIBLE MILD PERIAPPENDICEAL INFLAMMATION. FINDINGS ARE SUGGESTIVE OF MILD EARLY APPENDICITIS. NO EVIDENCE OF PERFORATION OR ABSCESS. 2. NONOBSTRUCTING CALCULI IN THE KIDNEYS. CHRONIC SCARRING OF THE LEFT KIDNEY. 3. RIGHT ADRENAL NODULE. NONSPECIFIC. 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 4. OTHER CHRONIC FINDINGS ABOVE. NO OTHER SIGNIFICANT OR ACUTE FINDING IN THE ABDOMEN OR PELVIS ON CT SCAN WITH ORAL AND IV CONTRAST. Assessment & Plan - Diagnosis (1) Appendicitis Qualifiers: Appendicitis type: acute appendicitis Is this a current diagnosis for this admission?: Yes Plan: Status post laparoscopic appendectomy. Will place a Murphy catheter for her urinary retention. We will try clear liquids. If tolerated will Hep-Lock her IV. Decreased hematocrit likely due to some intraoperative blood loss and hemodilution. We will repeat H&H later today and tomorrow morning. - Time Time Spent with patient: Less than 15 minutes
--- NOTE | 2019-06-28 10:31 | Operative Report ---
Operative Report DATE OF SURGERY: 06/27/19 PREOPERATIVE DIAGNOSIS: Appendicitis POSTOPERATIVE DIAGNOSIS: Appendicitis OPERATION: Laparoscopic appendectomy SURGEON: USHA KAPADIA ANESTHESIA: GA TISSUE REMOVED OR ALTERED: Appendix COMPLICATIONS: Liver laceration ESTIMATED BLOOD LOSS: 50 cc INTRAOPERATIVE FINDINGS: Inflamed distended nonperforated appendix. Cecal erythema. Dense midline adhesions with mesh. PROCEDURE: Informed consent was obtained. Patient was brought to the operating room and placed on the operating table in the supine position. After satisfactory induction of general anesthesia patient's abdomen was prepped and draped in usual sterile fashion. A mid upper midline incision was made and dissection was carried down fascia was sharply incised. underneath was some thickened tissue that I incised and it proved to be mesh. The surrounding tissue was cleared out with gentle blunt dissection. It was difficult to tell the extensiveness of the adhesions. Elizalde trocar was inserted and insufflation created. Laparoscopic view demonstrated dense adhesions all around this area with no free peritoneal space. There was absolutely no evidence of bowel injury. With the density of adhesions I abandoned this site. The mesh incision was closed with Prolene sutures. The overlying fascia was closed with interrupted Vicryl sutures. The skin was closed and occlusive dressing was applied. A subxiphoid incision was made at the midline and dissection was carried down and the fascia was sharply incised. Dissection was carried through the falciform ligament and the peritoneal cavity was entered. Elizalde trocar was then inserted pneumoperitoneum produced with good patient toleration. Laparoscopic view demonstrated dense wide midline adhesions with portions of visible incorporated mesh. Two 5 mm trochars were placed in the right lateral mid abdomen, lateral to the adhesions. Patient was placed in a Trendelenburg position with the right side up. The cecum had some erythema. The appendix appeared markedly distended and inflamed. There was no evidence of perforation. The atypical location of the trochars due to her adhesions made the procedure technically challenging. A plane was created between the mesoappendix and the appendix at the base of the appendix. The appendix was taken using a blue load of the Endo ZAHIRA stapling device flush with the cecum. The stump closure appeared secure. The tissue appeared viable. The mesoappendix was taken with a vascular load of the Endo ZAHIRA stapling device. Hemostasis appeared excellent. The operative field was lightly irrigated and irrigant aspirated out. The 2 right-sided 5 mm trochars were elba harinder under the direct vision of the laparoscope to ensure hemostasis. However upon trying to close the subxiphoid Elizalde trocar site fascial defect I noted blood at the base of the wound. It did not appear to be coming from the falciform ligament. The Elizalde trocar was reinserted pneumoperitoneum produced. The two 5 mm trochars were reinserted. Laparoscopic view of the Elizalde trocar site demonstrated no bleeding from the falciform ligament however at the site of the falciform ligament attachment to the liver, there was a liver laceration with bleeding, likely a traction related laceration. This region was cauterized with resultant hemostasis. There was another small laceration on the liver that was cauterized as well. Clotted blood around this region was aspirated as much as possible. Hemostasis appeared to be good. The Elizalde trocar site fascial defect was closed with interrupted Vicryl sutures. All skin incisions were closed with subcuticular interrupted Monocryl sutures. Marcaine was injected at the port sites. Patient tolerated procedure well with no complications other than the liver lacerations and was taken to the recovery area in stable condition.
[2019-06-28] MEDS: ACETAMINOPHEN 325 MG TABLET PO PRN (11:09)
[2019-06-28] MEDS ORDERED: VANCOMYCIN HCL 0 MG in DEXTROSE 5%-WATER 250 ML IV NR (11:30)
[2019-06-28] MEDS ORDERED: VANCOMYCIN HCL 1,250 MG in DEXTROSE 5%-WATER 250 ML IV ONE (16:00)
[2019-06-28] MEDS ORDERED: LEVOFLOXACIN 750 MG/D5W RTU 750 MG/150 ML RTUPB IV SCH (18:00)
[2019-06-28 18:15] LABS: HEMATOCRIT 29.3 % (36.0-47.0); HEMOGLOBIN 9.9 g/dL (12.0-15.5); MEAN CORPUSCULAR HEMOGLOBIN 29.6 pg (27.0-33.4); MEAN CORPUSCULAR HGB CONC 33.9 g/dL (32.0-36.0); MEAN CORPUSCULAR VOLUME 87 fl (80-97); PLATELET COUNT 126 10^3/uL (150-450); RED BLOOD COUNT 3.36 10^6/uL (3.72-5.28); RED CELL DISTRIBUTION WIDTH 14.8 % (11.5-14.0); WHITE BLOOD COUNT 9.4 10^3/uL (4.0-10.5)
[2019-06-29] MEDS: METRONIDAZOLE 500 MG/NS RTU 500 MG/100 ML RTUPB IV SCH ×4 (02:43→21:45)
[2019-06-29] MEDS: CIPROFLOXACIN 400 MG/D5W RTU 400 MG/200 ML RTUPB IV SCH ×2 (05:25→17:04)
[2019-06-29 06:26] LABS: HEMATOCRIT 29.3 % (36.0-47.0); MEAN CORPUSCULAR HEMOGLOBIN 29.8 pg (27.0-33.4); MEAN CORPUSCULAR HGB CONC 34.2 g/dL (32.0-36.0); MEAN CORPUSCULAR VOLUME 87 fl (80-97); PLATELET COUNT 123 10^3/uL (150-450); RED BLOOD COUNT 3.37 10^6/uL (3.72-5.28); RED CELL DISTRIBUTION WIDTH 14.4 % (11.5-14.0); WHITE BLOOD COUNT 7.5 10^3/uL (4.0-10.5)
[2019-06-29 06:40] LABS: ANION GAP 6 (5-19); BLOOD UREA NITROGEN 17 mg/dL (7-20); CALCIUM 8.5 mg/dL (8.4-10.2); CARBON DIOXIDE 24 mmol/L (22-30); CHLORIDE 110 mmol/L (98-107); GLUCOSE 138 mg/dL (75-110); POTASSIUM 3.7 mmol/L (3.6-5.0)
[2019-06-29] MEDS: VANCOMYCIN HCL 750 MG in DEXTROSE 5%-WATER 250 ML IV SCH ×2 (06:55→18:55)
--- NOTE | 2019-06-29 07:50 | PDOC PROGRESS REPORT ---
Subjective Progress Note for:: 06/29/19 Subjective:: 06/28/2019-no complaints this a.m. 06/29/2019-no complaints this a.m. Reason For Visit: APPENDICITIS Physical Exam Vital Signs: Temp Pulse Resp BP Pulse Ox 97.4 F 62 17 140/51 H 100 06/29/19 03:13 06/29/19 07:00 06/29/19 03:13 06/29/19 03:13 06/29/19 03:13 Intake & Output 06/28/19 06/29/19 06/30/19 06:59 06:59 06:59 Intake Total 4750 3895 Output Total 550 2050 Balance 4200 1845 Weight 77.9 kg 81.4 kg General appearance: PRESENT: no acute distress, well-developed, well-nourished Neck exam: ABSENT: carotid bruit, JVD, lymphadenopathy, thyromegaly Respiratory exam: PRESENT: clear to auscultation wilver. ABSENT: rales, rhonchi, wheezes Cardiovascular exam: PRESENT: RRR. ABSENT: diastolic murmur, rubs, systolic murmur Pulses: PRESENT: +1 pedal pulses bilateral Vascular exam: PRESENT: normal capillary refill GI/Abdominal exam: PRESENT: diminished bowel sounds, soft, tenderness, other Extremities exam: PRESENT: full ROM. ABSENT: calf tenderness, clubbing, pedal edema Neurological exam: PRESENT: alert, awake, oriented to person, oriented to place, oriented to time, oriented to situation, CN II-XII grossly intact. ABSENT: motor sensory deficit Psychiatric exam: PRESENT: appropriate affect, normal mood. ABSENT: homicidal ideation, suicidal ideation Skin exam: PRESENT: dry, intact, warm. ABSENT: cyanosis, rash Results Laboratory Results: 06/29/19 06:12 06/29/19 06:12 06/28/19 06/29/19 06/29/19 18:05 06:12 06:12 WBC 9.4 7.5 RBC 3.36 L 3.37 L Hgb 9.9 L 10.0 L Hct 29.3 L 29.3 L MCV 87 87 MCH 29.6 29.8 MCHC 33.9 34.2 RDW 14.8 H 14.4 H Plt Count 126 L 123 L Sodium 140.0 Potassium 3.7 Chloride 110 H Carbon Dioxide 24 Anion Gap 6 BUN 17 Creatinine 0.80 Est GFR ( Amer) > 60 Glucose 138 H Calcium 8.5 06/27/19 06/27/19 10:35 10:35 Creatine Kinase 119 Troponin I < 0.012 Impressions: Acute Abdomen Series 06/27/19 10:15 IMPRESSION: Nonspecific bowel gas pattern No focal infiltrates Abdomen/Pelvis CT 06/27/19 11:55 IMPRESSION: 1. THE APPENDIX IS SLIGHTLY THICKENED. POSSIBLE MILD PERIAPPENDICEAL INFLAMMATION. FINDINGS ARE SUGGESTIVE OF MILD EARLY APPENDICITIS. NO EVIDENCE OF PERFORATION OR ABSCESS. 2. NONOBSTRUCTING CALCULI IN THE KIDNEYS. CHRONIC SCARRING OF THE LEFT KIDNEY. 3. RIGHT ADRENAL NODULE. NONSPECIFIC. 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 4. OTHER CHRONIC FINDINGS ABOVE. NO OTHER SIGNIFICANT OR ACUTE FINDING IN THE ABDOMEN OR PELVIS ON CT SCAN WITH ORAL AND IV CONTRAST. Assessment and Plan - Diagnosis (1) Appendicitis Qualifiers: Appendicitis type: acute appendicitis Is this a current diagnosis for this admission?: Yes Plan: 06/27/2019-going to OR tonight for laparoscopic appendectomy. We will follow-up after appendectomy for medical management 06/28/2019-laparoscopic appendectomy yesterday. Appears to be doing well this mo rning. Will start diet and physical therapy. Await further recognitions per surgery. 06/29/2019-progressing well. Required no pain medication overnight. Continue to follow with surgery. (2) Abdominal pain Is this a current diagnosis for this admission?: Yes Plan: 06/27/2019-Dilaudid 0.5 mg IV every 3 hours as needed. Tylenol and Toradol as needed. 06/28/2019-continue Dilaudid and morphine as needed 06/29/2019-improved did not require pain medication overnight. Continue to follow (3) Type 2 diabetes mellitus Is this a current diagnosis for this admission?: Yes Plan: 06/27/2019-A1c in a.m. Sliding scale insulin before meals and at bedtime with a carbohydrate controlled diet after patient has returned from the OR we will continue all home medications at that time 2. 06/28/2019-A1c is 7.0. Continue carbohydrate controlled diet sliding scale insul in. Will place patient on appropriate oral antidiabetic medication at that time. 06/29/2019-stable continue current therapy Place patient on appropriate oral antidiabetic medications at discharge. (4) Nausea & vomiting Is this a current diagnosis for this admission?: Yes Plan: 06/27/2019 Zofran 4 mill grams IV every 8 hours as needed 06/28/2019-continue Zofran as needed 06/29/2019-stable continue Zofran as needed (5) UTI (urinary tract infection) Is this a current diagnosis for this admission?: Yes Plan: 06/27/2019-Levaquin 750 mg IV daily await urine cultures 06/28/2019-continue Cipro twice daily 06/29/2019-continue Cipro (6) Gram positive septicemia Is this a current diagnosis for this admission?: Yes Plan: 06/29/2019-blood cultures turn bottle showing gram-positive septicemia. V ancomycin initiated. Will repeat blood cultures. - Time Time Spent with patient: 15-24 minutes
[2019-06-29] MEDS: INSULIN REG, HUMAN 100 UNIT/ML 3 ML VIAL (PYX) SUBCUT SCH ×4 (08:00→21:51)
--- NOTE | 2019-06-29 09:44 | PDOC PROGRESS REPORT ---
Subjective Progress Note for:: 06/29/19 Subjective:: Patient in bed, got up once yesterday. Murphy catheter still in. Family at bedside. Tolerating clear liquids. Reason For Visit: APPENDICITIS Physical Exam Vital Signs: Temp Pulse Resp BP Pulse Ox 97.9 F 60 17 139/64 H 99 06/29/19 07:33 06/29/19 07:33 06/29/19 07:33 06/29/19 07:33 06/29/19 07:33 Intake & Output 06/28/19 06/29/19 06/30/19 06:59 06:59 06:59 Intake Total 4750 3895 250 Output Total 550 2050 Balance 4200 1845 250 Weight 77.9 kg 81.4 kg General appearance: PRESENT: no acute distress GI/Abdominal exam: PRESENT: other - Abdomen examined. All dressings dry and in tact. No peritoneal signs no rigidity. Results Laboratory Results: 06/29/19 06:12 06/29/19 06:12 06/28/19 06/29/19 06/29/19 18:05 06:12 06:12 WBC 9.4 7.5 RBC 3.36 L 3.37 L Hgb 9.9 L 10.0 L Hct 29.3 L 29.3 L MCV 87 87 MCH 29.6 29.8 MCHC 33.9 34.2 RDW 14.8 H 14.4 H Plt Count 126 L 123 L Sodium 140.0 Potassium 3.7 Chloride 110 H Carbon Dioxide 24 Anion Gap 6 BUN 17 Creatinine 0.80 Est GFR ( Amer) > 60 Glucose 138 H Calcium 8.5 06/27/19 06/27/19 10:35 10:35 Creatine Kinase 119 Troponin I < 0.012 Impressions: Acute Abdomen Series 06/27/19 10:15 IMPRESSION: Nonspecific bowel gas pattern No focal infiltrates Abdomen/Pelvis CT 06/27/19 11:55 IMPRESSION: 1. THE APPENDIX IS SLIGHTLY THICKENED. POSSIBLE MILD PERIAPPENDICEAL INFLAMMATION. FINDINGS ARE SUGGESTIVE OF MILD EARLY APPENDICITIS. NO EVIDENCE OF PERFORATION OR ABSCESS. 2. NONOBSTRUCTING CALCULI IN THE KIDNEYS. CHRONIC SCARRING OF THE LEFT KIDNEY. 3. RIGHT ADRENAL NODULE. NONSPECIFIC. 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 4. OTHER CHRONIC FINDINGS ABOVE. NO OTHER SIGNIFICANT OR ACUTE FINDING IN THE ABDOMEN OR PELVIS ON CT SCAN WITH ORAL AND IV CONTRAST. Assessment & Plan - Diagnosis (1) Appendicitis Qualifiers: Appendicitis type: acute appendicitis Is this a current diagnosis for this admission?: Yes Plan: Impression: Patient is postoperative day 2 status post laparoscopic appendectomy, doing well from a surgical standpoint. Challenges include obesity, and mobilization challenges. Patient growing gram-positive cocci from 2 blood cultures. Antibiotics altered to include vancomycin. Recommendations: 1. Increase of physical activity; we will get physical therapy involved. We will also get discharge planning involved. We will add incentive spirometer to pulmonary toilet regimen 2. Discontinue Dilaudid: Patient can take Tylenol p.o. 3. Patient tolerating a diet, will advance slowly. 4. Patient lives in [place]; granddaughter here in [place]; anticipate discharge home in the next 24 to 48 hours 5. We will leave Murphy catheter until patient up more reliably out of bed. (2) Morbid obesity Is this a current diagnosis for this admission?: Yes (3) Gram positive septicemia Is this a current diagnosis for this admission?: Yes - Time Time Spent with patient: 15-24 minutes
[2019-06-29] MEDS: FLUTICASONE/VILANTEROL 200-25 MCG/DOSE IH SCH (11:39)
[2019-06-29] MEDS: CAPTOPRIL 25 MG TABLET PO SCH (11:40)
[2019-06-29] MEDS: ACETAMINOPHEN 325 MG TABLET PO PRN ×2 (11:45→17:54)
[2019-06-29] MEDS: GABAPENTIN 300 MG CAPSULE PO SCH ×2 (14:08→21:50)
[2019-06-29] MEDS: DOCUSATE SODIUM 100 MG CAPSULE PO SCH (17:05)
[2019-06-29] MEDS: CYCLOSPORINE 0.05% OPH EMULSIO 0.4 ML DROPERETTE OU SCH (17:54)
[2019-06-29] MEDS: CARVEDILOL 12.5 MG TABLET PO SCH (21:50)
[2019-06-29] MEDS: EZETIMIBE 10 MG TABLET PO SCH (21:50)
[2019-06-29] MEDS: ATORVASTATIN CALCIUM 80 MG TABLET PO SCH (21:50)
[2019-06-29] MEDS ORDERED: (PENDING PHARMACY ID) (Budesonide/Formoterol Fumarate 1 PUFF) IH SCH (22:00)
[2019-06-30] MEDS: METRONIDAZOLE 500 MG/NS RTU 500 MG/100 ML RTUPB IV SCH ×2 (03:12→09:37)
[2019-06-30] MEDS: CIPROFLOXACIN 400 MG/D5W RTU 400 MG/200 ML RTUPB IV SCH (05:17)
[2019-06-30 06:32] LABS: ANION GAP 5 (5-19); BLOOD UREA NITROGEN 12 mg/dL (7-20); CARBON DIOXIDE 26 mmol/L (22-30); CHLORIDE 112 mmol/L (98-107); GLUCOSE 113 mg/dL (75-110); POTASSIUM 4.1 mmol/L (3.6-5.0)
[2019-06-30] MEDS: VANCOMYCIN HCL 750 MG in DEXTROSE 5%-WATER 250 ML IV SCH (06:32)
[2019-06-30] MEDS: LEVOTHYROXINE SODIUM 0.025 MG TABLET PO SCH (06:34)
[2019-06-30] MEDS: GABAPENTIN 300 MG CAPSULE PO SCH ×3 (06:34→22:18)
[2019-06-30 06:37] LABS: VANCOMYCIN,TROUGH 11.8 ug/mL (5.0-20.0)
[2019-06-30] MEDS: INSULIN REG, HUMAN 100 UNIT/ML 3 ML VIAL (PYX) SUBCUT SCH ×4 (08:12→22:20)
[2019-06-30] MEDS: FLUTICASONE/VILANTEROL 200-25 MCG/DOSE IH SCH (09:35)
[2019-06-30] MEDS: ASPIRIN 81 MG TABLET, ENT COATED PO SCH (09:36)
[2019-06-30] MEDS: CARVEDILOL 12.5 MG TABLET PO SCH ×2 (09:36→22:18)
[2019-06-30] MEDS: CAPTOPRIL 25 MG TABLET PO SCH (09:36)
[2019-06-30] MEDS: DIGOXIN 0.125 MG TABLET PO SCH (09:36)
[2019-06-30] MEDS: DOCUSATE SODIUM 100 MG CAPSULE PO SCH ×2 (09:36→17:34)
[2019-06-30] MEDS: CYCLOSPORINE 0.05% OPH EMULSIO 0.4 ML DROPERETTE OU SCH ×2 (09:36→17:33)
[2019-06-30] MEDS ORDERED: CAPTOPRIL PO SCH (10:00)
--- NOTE | 2019-06-30 10:36 | PDOC PROGRESS REPORT ---
Subjective Progress Note for:: 06/30/19 Subjective:: Feels well. No complaints. Reason For Visit: APPENDICITIS Physical Exam Vital Signs: Temp Pulse Resp BP Pulse Ox 97.3 F 60 16 152/86 H 98 06/30/19 07:57 06/30/19 07:57 06/30/19 07:57 06/30/19 07:57 06/30/19 07:57 Intake & Output 06/29/19 06/30/19 07/01/19 06:59 06:59 06:59 Intake Total 3895 2440 450 Output Total 2050 3900 Balance 1845 -1460 450 Weight 81.4 kg 80.6 kg General appearance: PRESENT: no acute distress, cooperative Respiratory exam: PRESENT: clear to auscultation wilver Cardiovascular exam: PRESENT: RRR GI/Abdominal exam: PRESENT: other - Soft, nondistended, nontender to palpation. Wound clean dry and intact. Results Laboratory Results: 06/29/19 06:12 06/30/19 05:33 06/30/19 05:33 Sodium 143.4 Potassium 4.1 Chloride 112 H Carbon Dioxide 26 Anion Gap 5 BUN 12 Creatinine 0.81 Est GFR ( Amer) > 60 Glucose 113 H Calcium 9.0 06/27/19 06/27/19 10:35 10:35 Creatine Kinase 119 Troponin I < 0.012 Impressions: Acute Abdomen Series 06/27/19 10:15 IMPRESSION: Nonspecific bowel gas pattern No focal infiltrates Abdomen/Pelvis CT 06/27/19 11:55 IMPRESSION: 1. THE APPENDIX IS SLIGHTLY THICKENED. POSSIBLE MILD PERIAPPENDICEAL INFL AMMATION. FINDINGS ARE SUGGESTIVE OF MILD EARLY APPENDICITIS. NO EVIDENCE OF PERFORATION OR ABSCESS. 2. NONOBSTRUCTING CALCULI IN THE KIDNEYS. CHRONIC SCARRING OF THE LEFT KIDNEY. 3. RIGHT ADRENAL NODULE. NONSPECIFIC. 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 4. OTHER CHRONIC FINDINGS ABOVE. NO OTHER SIGNIFICANT OR ACUTE FINDING IN THE ABDOMEN OR PELVIS ON CT SCAN WITH ORAL AND IV CONTRAST. Assessment & Plan - Diagnosis (1) Appendicitis Qualifiers: Appendicitis type: acute appendicitis Is this a current diagnosis for this admission?: Yes Plan: Status post laparoscopic appendectomy. Patient looks pretty good. We will DC Murphy catheter. When she is able to urinate and have more mobility will discharge patient home. I did get her up from her chair and she was able to ambulate with minor assistance. We will get discharge planning involved. She may need an elevated toilet and a walker at home [place] and I have requested that the family keep her in town here for another week until she has regained her strength for travel. 1 of her blood cultures is growing out a gram-positive cocci which I suspect is due to contamination rather than a true bacteremia. She has had no fever and she demonstrated no evidence of sepsis. I will DC her antibiotics. Will reconsider if cultures grow out something other than staph epi. - Time Time Spent with patient: Less than 15 minutes
[2019-06-30] MEDS: ACETAMINOPHEN 325 MG TABLET PO PRN (15:43)
--- NOTE | 2019-06-30 17:23 | PDOC PROGRESS REPORT ---
Subjective Progress Note for:: 06/30/19 Subjective:: No adverse events overnight. No fevers. No abdominal pain. Eating a regular diet without problems. Reason For Visit: APPENDICITIS Physical Exam Vital Signs: Temp Pulse Resp BP Pulse Ox 97.5 F 79 16 127/62 H 99 06/30/19 13:17 06/30/19 14:00 06/30/19 13:17 06/30/19 13:17 06/30/19 13:17 Intake & Output 06/29/19 06/30/19 07/01/19 06:59 06:59 06:59 Intake Total 3895 2440 545 Output Total 2050 3900 Balance 1845 -1460 545 Weight 81.4 kg 80.6 kg General appearance: PRESENT: no acute distress, cooperative, disheveled, obese Respiratory exam: PRESENT: clear to auscultation wilver, symmetrical, unlabored. ABSENT: accessory muscle use, chest wall tenderness, crackles, prolonged exp iratory phas, rhonchi, tachypnea, wheezes Cardiovascular exam: PRESENT: RRR, +S1, +S2 Pulses: PRESENT: normal carotid pulses Vascular exam: PRESENT: normal capillary refill GI/Abdominal exam: PRESENT: normal bowel sounds, soft. ABSENT: distended, guarding, rebound, tenderness Extremities exam: ABSENT: clubbing, pedal edema Musculoskeletal exam: PRESENT: normal inspection. ABSENT: deformity Neurological exam: PRESENT: alert, awake, oriented to person, oriented to place, oriented to situation Psychiatric exam: PRESENT: appropriate affect, normal mood Skin exam: PRESENT: dry, warm Results Laboratory Results: 06/29/19 06:12 06/30/19 05:33 06/30/19 05:33 Sodium 143.4 Potassium 4.1 Chloride 112 H Carbon Dioxide 26 Anion Gap 5 BUN 12 Creatinine 0.81 Est GFR ( Amer) > 60 Glucose 113 H Calcium 9.0 06/27/19 12:20 Blood Blood Culture - Final Strep Anginosus Group 06/27/19 12:05 Blood Blood Culture - Final Strep Anginosus Group 06/27/19 06/27/19 10:35 10:35 Creatine Kinase 119 Troponin I < 0.012 Impressions: Acute Abdomen Series 06/27/19 10:15 IMPRESSION: Nonspecific bowel gas pattern No focal infiltrates Abdomen/Pelvis CT 06/27/19 11:55 IMPRESSION: 1. THE APPENDIX IS SLIGHTLY THICKENED. POSSIBLE MILD PERIAPPENDICEAL INFLAMMATION. FINDINGS ARE SUGGESTIVE OF MILD EARLY APPENDICITIS. NO EVIDENCE OF PERFORATION OR ABSCESS. 2. NONOBSTRUCTING CALCULI IN THE KIDNEYS. CHRONIC SCARRING OF THE LEFT KIDNEY. 3. RIGHT ADRENAL NODULE. NONSPECIFIC. 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 4. OTHER CHRONIC FINDINGS ABOVE. NO OTHER SIGNIFICANT OR ACUTE FINDING IN THE ABDOMEN OR PELVIS ON CT SCAN WITH ORAL AND IV CONTRAST. Assessment and Plan - Diagnosis (1) Appendicitis Qualifiers: Appendicitis type: acute appendicitis Is this a current diagnosis for this admission?: Yes Plan: Status post laparoscopic appendectomy. Postop care per surgery. (2) Gram positive septicemia Is this a current diagnosis for this admission?: Yes Plan: Turns out she has a Streptococcus anginosus bacteremia. This is in the viridans Streptococcus group. Per guidelines, and has to be treated like a legitimate infection, especially considering that most commonly comes from intra-abdominal infections, such as appendicitis. The guidelines recommend treatment with 2 weeks of IV antibiotics, specifically Rocephin. Of already notified case management. An order for a PICC line will be placed. - Time Time Spent with patient: 25-34 minutes
[2019-06-30] MEDS: EZETIMIBE 10 MG TABLET PO SCH (22:18)
[2019-06-30] MEDS: ATORVASTATIN CALCIUM 80 MG TABLET PO SCH (22:18)
[2019-07-01] MEDS ORDERED: VANCOMYCIN HCL 0 MG in DEXTROSE 5%-WATER 250 ML IV NR (06:15)
[2019-07-01] MEDS ORDERED: VANCOMYCIN HCL INJ 1000 MG VIAL IV PRN (06:32)
[2019-07-01] MEDS: GABAPENTIN 300 MG CAPSULE PO SCH ×3 (06:33→22:52)
[2019-07-01] MEDS: LEVOTHYROXINE SODIUM 0.025 MG TABLET PO SCH ×2 (06:33→07:19)
[2019-07-01] MEDS ORDERED: VANCOMYCIN HCL 1,000 MG in DEXTROSE 5%-WATER 250 ML IV ONE (06:45)
[2019-07-01] MEDS: INSULIN REG, HUMAN 100 UNIT/ML 3 ML VIAL (PYX) SUBCUT SCH ×4 (08:15→22:53)
[2019-07-01] MEDS: DOCUSATE SODIUM 100 MG CAPSULE PO SCH ×2 (09:46→17:16)
[2019-07-01] MEDS: DIGOXIN 0.125 MG TABLET PO SCH (09:46)
[2019-07-01] MEDS: ASPIRIN 81 MG TABLET, ENT COATED PO SCH (09:46)
[2019-07-01] MEDS: CAPTOPRIL 25 MG TABLET PO SCH (09:46)
[2019-07-01] MEDS: CARVEDILOL 12.5 MG TABLET PO SCH ×3 (09:47→23:36)
[2019-07-01] MEDS: FLUTICASONE/VILANTEROL 200-25 MCG/DOSE IH SCH (09:50)
[2019-07-01] MEDS: CYCLOSPORINE 0.05% OPH EMULSIO 0.4 ML DROPERETTE OU SCH ×2 (09:53→17:16)
[2019-07-01 10:09] LABS: FREE T3 3.15 pg/mL (2.77-5.27); FREE T4 (FREE THYROXINE) 1.3 ng/dL (0.78-2.19)
[2019-07-01 10:22] LABS: THYROID STIMULATING HORMONE 2.46 uIU/mL (0.47-4.68)
[2019-07-01] MEDS: ACETAMINOPHEN 325 MG TABLET PO PRN (12:15)
[2019-07-01] MEDS: VANCOMYCIN HCL 1,000 MG in DEXTROSE 5%-WATER 250 ML IV SCH ×2 (12:16→22:54)
--- NOTE | 2019-07-01 17:33 | PDOC PROGRESS REPORT ---
Subjective Progress Note for:: 07/01/19 Subjective:: No adverse events overnight. No new complaints. Eating and drinking without difficulty. We have been wanting to put her on Rocephin for her outpatient antibiotics, so I asked her about her penicillin allergy. Apparently, she had a lot of mouth sores and blisters and she also had substantial trouble breathing that required medical intervention. Reason For Visit: APPENDICITIS Physical Exam Vital Signs: Temp Pulse Resp BP Pulse Ox 97.8 F 61 16 162/64 H 99 07/01/19 12:10 07/01/19 14:00 07/01/19 12:10 07/01/19 12:10 07/01/19 12:10 Intake & Output 06/30/19 07/01/19 07/02/19 06:59 06:59 06:59 Intake Total 2440 1273 250 Output Total 3900 1150 Balance -1460 123 250 Weight 80.6 kg 77.6 kg General appearance: PRESENT: no acute distress, cooperative, disheveled, obese Respiratory exam: PRESENT: clear to auscultation wilver, symmetrical, unlabored. ABSENT: accessory muscle use, chest wall tenderness, crackles, prolonged expiratory phas, rhonchi, tachypnea, wheezes Cardiovascular exam: PRESENT: RRR, +S1, +S2 Pulses: PRESENT: normal carotid pulses Vascular exam: PRESENT: normal capillary refill GI/Abdominal exam: PRESENT: normal bowel sounds, soft. ABSENT: distended, guarding, rebound, tenderness Extremities exam: ABSENT: clubbing, pedal edema Musculoskeletal exam: PRESENT: normal inspection. ABSENT: deformity Neurological exam: PRESENT: alert, awake, oriented to person, oriented to place, oriented to situation Psychiatric exam: PRESENT: appropriate affect, normal mood Skin exam: PRESENT: dry, warm Results Laboratory Results: 06/29/19 06:12 06/30/19 05:33 06/30/19 05:33 TSH 2.46 Free T4 1.30 Free T3 pg/mL 3.15 06/27/19 06/27/19 10:35 10:35 Creatine Kinase 119 Troponin I < 0.012 Impressions: Acute Abdomen Series 06/27/19 10:15 IMPRESSION: Nonspecific bowel gas pattern No focal infiltrates Abdomen/Pelvis CT 06/27/19 11:55 IMPRESSION: 1. THE APPENDIX IS SLIGHTLY THICKENED. POSSIBLE MILD PERIAPPENDICEAL INFLAMMATION. FINDINGS ARE SUGGESTIVE OF MILD EARLY APPENDICITIS. NO EVIDENCE OF PERFORATION OR ABSCESS. 2. NONOBSTRUCTING CALCULI IN THE KIDNEYS. CHRONIC SCARRING OF THE LEFT KIDNEY. 3. RIGHT ADRENAL NODULE. NONSPECIFIC. 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 4. OTHER CHRONIC FINDINGS ABOVE. NO OTHER SIGNIFICANT OR ACUTE FINDING IN THE ABDOMEN OR PELVIS ON CT SCAN WITH ORAL AND IV CONTRAST. Assessment and Plan - Diagnosis (1) Appendicitis Qualifiers: Appendicitis type: acute appendicitis Is this a current diagnosis for this admission?: Yes Plan: Status post laparoscopic appendectomy. Postop care per surgery. (2) Gram positive septicemia Is this a current diagnosis for this admission?: Yes Plan: We have decided to go with vancomycin for her outpatient medication. This is because of a history of a severe penicillin allergy as noted above. Her daughter was worried about her getting a PICC line because of her cardiac history but I think that this is not really an issue. We will plan to get a PICC line and get her set up with outpatient vancomycin. - Time Time Spent with patient: 15-24 minutes
--- NOTE | 2019-07-01 18:29 | PDOC PROGRESS REPORT ---
Subjective Progress Note for:: 07/01/19 Reason For Visit: APPENDICITIS Physical Exam Vital Signs: Temp Pulse Resp BP Pulse Ox 97.8 F 61 16 162/64 H 99 07/01/19 12:10 07/01/19 14:00 07/01/19 12:10 07/01/19 12:10 07/01/19 12:10 Intake & Output 06/30/19 07/01/19 07/02/19 06:59 06:59 06:59 Intake Total 2440 1273 250 Output Total 3900 1150 Balance -1460 123 250 Weight 80.6 kg 77.6 kg Results Laboratory Results: 06/29/19 06:12 06/30/19 05:33 06/30/19 05:33 TSH 2.46 Free T4 1.30 Free T3 pg/mL 3.15 06/27/19 06/27/19 10:35 10:35 Creatine Kinase 119 Troponin I < 0.012 Impressions: Acute Abdomen Series 06/27/19 10:15 IMPRESSION: Nonspecific bowel gas pattern No focal infiltrates Abdomen/Pelvis CT 06/27/19 11:55 IMPRESSION: 1. THE APPENDIX IS SLIGHTLY THICKENED. POSSIBLE MILD PERIAPPENDICEAL INFLAMMATION. FINDINGS ARE SUGGESTIVE OF MILD EARLY APPENDICITIS. NO EVIDENCE OF PERFORATION OR ABSCESS. 2. NONOBSTRUCTING CALCULI IN THE KIDNEYS. CHRONIC SCARRING OF THE LEFT KIDNEY. 3. RIGHT ADRENAL NODULE. NONSPECIFIC. 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 4. OTHER CHRONIC FINDINGS ABOVE. NO OTHER SIGNIFICANT OR ACUTE FINDING IN THE ABDOMEN OR PELVIS ON CT SCAN WITH ORAL AND IV CONTRAST. Assessment & Plan - Diagnosis (1) Appendicitis Qualifiers: Appendicitis type: acute appendicitis Is this a current diagnosis for this admission?: Yes (2) Gram positive septicemia Is this a current diagnosis for this admission?: Yes - Time Time Spent with patient: Less than 15 minutes - Plan Summary Plan Summary: This is a 74-year-old female status post appendectomy. The patient was also found to have strep growing in her blood cultures. She has an indwelling pacemaker. Medicine has recommended 2 weeks of intravenous antibiotics. We will follow their recommendations. Plan for discharge once home health/home antibiotics and PICC line are arranged. Discussion was held with the family regarding options including PICC line and antibiotics versus no further antibiotics. The patient's family has decided to undergo PICC line placement and continue with intravenous antibiotics.
[2019-07-01] MEDS: EZETIMIBE 10 MG TABLET PO SCH (22:53)
[2019-07-01] MEDS: ATORVASTATIN CALCIUM 80 MG TABLET PO SCH (22:53)
[2019-07-02] MEDS: ALBUTEROL SULFATE 0.083% NEB 2.5 MG/3 ML AMPUL NEB PRN (00:07)
[2019-07-02] MEDS: LEVOTHYROXINE SODIUM 0.025 MG TABLET PO SCH (06:32)
[2019-07-02] MEDS: GABAPENTIN 300 MG CAPSULE PO SCH ×3 (06:33→22:02)
[2019-07-02] MEDS: INSULIN REG, HUMAN 100 UNIT/ML 3 ML VIAL (PYX) SUBCUT SCH ×4 (07:39→22:02)
[2019-07-02] MEDS: ASPIRIN 81 MG TABLET, ENT COATED PO SCH (09:10)
[2019-07-02] MEDS: DIGOXIN 0.125 MG TABLET PO SCH (09:10)
--- NOTE | 2019-07-02 09:10 | PDOC PROGRESS REPORT ---
Subjective Progress Note for:: 07/02/19 Subjective:: Feels well in regards to her abdomen. Ambulating much better. However she complains of right eye pain with her lids being stuck in the morning. Reason For Visit: APPENDICITIS Physical Exam Vital Signs: Temp Pulse Resp BP Pulse Ox 98.6 F 72 15 110/63 96 07/01/19 19:42 07/02/19 07:00 07/02/19 00:09 07/01/19 19:42 07/02/19 00:09 Intake & Output 07/01/19 07/02/19 07/03/19 06:59 06:59 06:59 Intake Total 1273 2034 Output Total 1150 160 Balance 123 1874 Weight 77.6 kg 79 kg General appearance: PRESENT: no acute distress, cooperative Eye exam: PRESENT: conjunctival injection Respiratory exam: PRESENT: clear to auscultation wilver Cardiovascular exam: PRESENT: RRR GI/Abdominal exam: PRESENT: other - Soft, nondistended, nontender to palpation. Wounds are clean dry and intact. Results Laboratory Results: 06/29/19 06:12 06/30/19 05:33 06/30/19 05:33 TSH 2.46 Free T4 1.30 Free T3 pg/mL 3.15 06/27/19 06/27/19 10:35 10:35 Creatine Kinase 119 Troponin I < 0.012 Impressions: Acute Abdomen Series 06/27/19 10:15 IMPRESSION: Nonspecific bowel gas pattern No focal infiltrates Abdomen/Pelvis CT 06/27/19 11:55 IMPRESSION: 1. THE APPENDIX IS SLIGHTLY THICKENED. POSSIBLE MILD PERIAPPENDICEAL INFLAMMATION. FINDINGS ARE SUGGESTIVE OF MILD EARLY APPENDICITIS. NO EVIDENCE OF PERFORATION OR ABSCESS. 2. NONOBSTRUCTING CALCULI IN THE KIDNEYS. CHRONIC SCARRING OF THE LEFT KIDNEY. 3. RIGHT ADRENAL NODULE. NONSPECIFIC. 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 4. OTHER CHRONIC FINDINGS ABOVE. NO OTHER SIGNIFICANT OR ACUTE FINDING IN THE ABDOMEN OR PELVIS ON CT SCAN WITH ORAL AND IV CONTRAST. Assessment & Plan - Diagnosis (1) Appendicitis Qualifiers: Appendicitis type: acute appendicitis Is this a current diagnosis for this admission?: Yes Plan: Status post laparoscopic appendectomy. Patient looks very good from an abdominal standpoint. Patient will go home with home health after PICC line is placed for 2-week course of IV vancomycin for her positive blood culture. Pending PICC line placement today, will be placed on the right side since patient has a pacemaker on the left. (2) Conjunctivitis Qualifiers: Laterality: right Is this a current diagnosis for this admission?: Yes Plan: Will ask ophthalmology to take a look at the patient prior to discharge. - Time Time Spent with patient: Less than 15 minutes
[2019-07-02] MEDS: FLUTICASONE/VILANTEROL 200-25 MCG/DOSE IH SCH (09:11)
[2019-07-02] MEDS: CAPTOPRIL 25 MG TABLET PO SCH (09:11)
[2019-07-02] MEDS: CARVEDILOL 12.5 MG TABLET PO SCH ×2 (09:11→22:01)
[2019-07-02] MEDS: DOCUSATE SODIUM 100 MG CAPSULE PO SCH ×2 (09:11→17:05)
[2019-07-02] MEDS: VANCOMYCIN HCL 1,000 MG in DEXTROSE 5%-WATER 250 ML IV SCH ×2 (09:12→22:02)
[2019-07-02] MEDS: CYCLOSPORINE 0.05% OPH EMULSIO 0.4 ML DROPERETTE OU SCH ×2 (09:13→22:12)
--- NOTE | 2019-07-02 16:00 | RADIOLOGY REPORT (SQ) ---
EXAM DESCRIPTION: PICC INSERTION; FLUORO/CV PLACEMENT; U/S GUIDE FOR VASCULAR ACCESS COMPLETED DATE/TIME: 07/02/2019 3:26 pm REASON FOR STUDY: longterm antibiotics; IV ABX; [employer] ABX COMPARISON: None. FLUOROSCOPY TIME: 21 seconds 1 ultrasound and 1 fluoroscopic images saved to PACS. TECHNIQUE: Fluoroscopic and ultrasound guided PICC placement. LIMITATIONS: None. PROCEDURE: After written consent and assessment were obtained, the patient was brought into the fluo roscopy room and placed supine on the table. Ultrasound evaluation of potential access sites were per formed. After successfully identifying a patent right basilic vein, the right arm was prepped and elodia ped in a sterile fashion along with the ultrasound probe. The entry site was anesthetized with 1% lid ocaine. A 21 gauge 7 cm needle was advanced through the skin and into the basilic vein under live ult rasound guidance. An ultrasound image was saved to PACS confirming access site. A .018 guide wire w as then inserted through the needle and into the venous system. The needle was then removed and an 11 blade scalpel was used to make a 1cm skin incision. A 5 fr peel-away sheath was advanced over the w dalia and into the venous system. A measurement was then made using the existing wire and live fluorosc opic guidance. The wire was then removed and trimmed. The PICC was advanced through the peel-away she ath and into the venous system. The peel-away sheath was removed and the catheter was adhered to the patients arm with a stat lock. The catheter was then aspirated and flushed and a sterile bandage was placed over the access site. A fluoroscopic spot image was saved to PACS confirming the catheter tip within the superior vena cava. IMPRESSION: SUCCESSFUL PLACEMENT OF A 5 FR DUAL LUMEN 31 CM PICC IN THE RIGHT BASILIC VEIN. COMMENT: Patient medication list reviewed: Yes- Quality ID# [id number]:Eligible professional attests to doc umenting in the medical record they obtained, updated, or reviewed the patient's current medications. . Quality ID 145: Final reports for procedures using fluoroscopy that document radiation exposure freddy janis, or exposure time and number of fluorographic images (if radiation exposure indices are not avail able) Quality ID #76: The patient was prepped and draped using maximum sterile barrier technique including cap, mask, sterile gown, sterile gloves, a large sterile sheet, hand hygiene, and 2% Chlorhexidine fo r cutaneous antisepsis. When ultrasound is used, sterile ultrasound techniques are followed requiring sterile gel and sterile probes. TECHNICAL DOCUMENTATION: JOB ID: [id number] [employer]- All Rights Reserved rev-12/13 Reading location - IP/workstation name: [email or web address]
--- NOTE | 2019-07-02 16:00 | RADIOLOGY REPORT (SQ) ---
EXAM DESCRIPTION: PICC INSERTION; FLUORO/CV PLACEMENT; U/S GUIDE FOR VASCULAR ACCESS COMPLETED DATE/TIME: 07/02/2019 3:26 pm REASON FOR STUDY: jail antibiotics; IV ABX; MERCHANDISE DISTRIBUTOR ABX COMPARISON: None. FLUOROSCOPY TIME: 21 seconds 1 ultrasound and 1 fluoroscopic images saved to PACS. TECHNIQUE: Fluoroscopic and ultrasound guided PICC placement. LIMITATIONS: None. PROCEDURE: After written consent and assessment were obtained, the patient was brought into the fluo roscopy room and placed supine on the table. Ultrasound evaluation of potential access sites were per formed. After successfully identifying a patent right basilic vein, the right arm was prepped and elodia ped in a sterile fashion along with the ultrasound probe. The entry site was anesthetized with 1% lid ocaine. A 21 gauge 7 cm needle was advanced through the skin and into the basilic vein under live ult rasound guidance. An ultrasound image was saved to PACS confirming access site. A .018 guide wire w as then inserted through the needle and into the venous system. The needle was then removed and an 11 blade scalpel was used to make a 1cm skin incision. A 5 fr peel-away sheath was advanced over the w dalia and into the venous system. A measurement was then made using the existing wire and live fluorosc opic guidance. The wire was then removed and trimmed. The PICC was advanced through the peel-away she ath and into the venous system. The peel-away sheath was removed and the catheter was adhered to the patients arm with a stat lock. The catheter was then aspirated and flushed and a sterile bandage was placed over the access site. A fluoroscopic spot image was saved to PACS confirming the catheter tip within the superior vena cava. IMPRESSION: SUCCESSFUL PLACEMENT OF A 5 FR DUAL LUMEN 31 CM PICC IN THE RIGHT BASILIC VEIN. COMMENT: Patient medication list reviewed: Yes- Quality ID# [id number]:Eligible professional attests to doc umenting in the medical record they obtained, updated, or reviewed the patient's current medications. . Quality ID 145: Final reports for procedures using fluoroscopy that document radiation exposure freddy janis, or exposure time and number of fluorographic images (if radiation exposure indices are not avail able) Quality ID #76: The patient was prepped and draped using maximum sterile barrier technique including cap, mask, sterile gown, sterile gloves, a large sterile sheet, hand hygiene, and 2% Chlorhexidine fo r cutaneous antisepsis. When ultrasound is used, sterile ultrasound techniques are followed requiring sterile gel and sterile probes. TECHNICAL DOCUMENTATION: JOB ID: [id number] [employer]- All Rights Reserved rev-12/13 Reading location - IP/workstation name: [email or web address]
--- NOTE | 2019-07-02 16:00 | RADIOLOGY REPORT (SQ) ---
EXAM DESCRIPTION: PICC INSERTION; FLUORO/CV PLACEMENT; U/S GUIDE FOR VASCULAR ACCESS COMPLETED DATE/TIME: 07/02/2019 3:26 pm REASON FOR STUDY: snf antibiotics; IV ABX; TOWNSHIP CLERK ABX COMPARISON: None. FLUOROSCOPY TIME: 21 seconds 1 ultrasound and 1 fluoroscopic images saved to PACS. TECHNIQUE: Fluoroscopic and ultrasound guided PICC placement. LIMITATIONS: None. PROCEDURE: After written consent and assessment were obtained, the patient was brought into the fluo roscopy room and placed supine on the table. Ultrasound evaluation of potential access sites were per formed. After successfully identifying a patent right basilic vein, the right arm was prepped and elodia ped in a sterile fashion along with the ultrasound probe. The entry site was anesthetized with 1% lid ocaine. A 21 gauge 7 cm needle was advanced through the skin and into the basilic vein under live ult rasound guidance. An ultrasound image was saved to PACS confirming access site. A .018 guide wire w as then inserted through the needle and into the venous system. The needle was then removed and an 11 blade scalpel was used to make a 1cm skin incision. A 5 fr peel-away sheath was advanced over the w dalia and into the venous system. A measurement was then made using the existing wire and live fluorosc opic guidance. The wire was then removed and trimmed. The PICC was advanced through the peel-away she ath and into the venous system. The peel-away sheath was removed and the catheter was adhered to the patients arm with a stat lock. The catheter was then aspirated and flushed and a sterile bandage was placed over the access site. A fluoroscopic spot image was saved to PACS confirming the catheter tip within the superior vena cava. IMPRESSION: SUCCESSFUL PLACEMENT OF A 5 FR DUAL LUMEN 31 CM PICC IN THE RIGHT BASILIC VEIN. COMMENT: Patient medication list reviewed: Yes- Quality ID# [id number]:Eligible professional attests to doc umenting in the medical record they obtained, updated, or reviewed the patient's current medications. . Quality ID 145: Final reports for procedures using fluoroscopy that document radiation exposure freddy janis, or exposure time and number of fluorographic images (if radiation exposure indices are not avail able) Quality ID #76: The patient was prepped and draped using maximum sterile barrier technique including cap, mask, sterile gown, sterile gloves, a large sterile sheet, hand hygiene, and 2% Chlorhexidine fo r cutaneous antisepsis. When ultrasound is used, sterile ultrasound techniques are followed requiring sterile gel and sterile probes. TECHNICAL DOCUMENTATION: JOB ID: [id number] [employer]- All Rights Reserved rev-12/13 Reading location - IP/workstation name: [email or web address]
--- NOTE | 2019-07-02 16:21 | PDOC PROGRESS REPORT ---
Subjective Progress Note for:: 07/02/19 Subjective:: No adverse events overnight. She is complaining of some right eye redness and burning and says that when she wakes up her eyelids are stuck together. Spoke to the daughter that is here and she said it was her sister that was in [place] that was worried about her getting PICC line but she says that neither she nor the patient have any problems with it. Reason For Visit: APPENDICITIS Physical Exam Vital Signs: Temp Pulse Resp BP Pulse Ox 97.8 F 63 16 174/76 H 100 07/02/19 11:51 07/02/19 14:00 07/02/19 11:51 07/02/19 11:51 07/02/19 11:51 Intake & Output 07/01/19 07/02/19 07/03/19 06:59 06:59 06:59 Intake Total 1273 2034 678 Output Total 1150 160 Balance 123 1874 678 Weight 77.6 kg 79 kg General appearance: PRESENT: no acute distress, cooperative, disheveled, obese Respiratory exam: PRESENT: clear to auscultation wilver, symmetrical, unlabored. ABSENT: accessory muscle use, chest wall tenderness, crackles, prolonged expiratory phas, rhonchi, tachypnea, wheezes Cardiovascular exam: PRESENT: RRR, +S1, +S2 Pulses: PRESENT: normal carotid pulses Vascular exam: PRESENT: normal capillary refill GI/Abdominal exam: PRESENT: normal bowel sounds, soft. ABSENT: distended, guarding, rebound, tenderness Extremities exam: ABSENT: clubbing, pedal edema Musculoskeletal exam: PRESENT: normal inspection. ABSENT: deformity Neurological exam: PRESENT: alert, awake, oriented to person, oriented to place, oriented to situation Psychiatric exam: PRESENT: appropriate affect, normal mood Skin exam: PRESENT: dry, warm Results Laboratory Results: 06/29/19 06:12 06/30/19 05:33 06/27/19 06/27/19 10:35 10:35 Creatine Kinase 119 Troponin I < 0.012 Impressions: Acute Abdomen Series 06/27/19 10:15 IMPRESSION: Nonspecific bowel gas pattern No focal infiltrates Abdomen/Pelvis CT 06/27/19 11:55 IMPRESSION: 1. THE APPENDIX IS SLIGHTLY THICKENED. POSSIBLE MILD PERIAPPENDICEAL INFLAMMATION. FINDINGS ARE SUGGESTIVE OF MILD EARLY APPENDICITIS. NO EVIDENCE OF PERFORATION OR ABSCESS. 2. NONOBSTRUCTING CALCULI IN THE KIDNEYS. CHRONIC SCARRING OF THE LEFT KIDNEY. 3. RIGHT ADRENAL NODULE. NONSPECIFIC. 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 4. OTHER CHRONIC FINDINGS ABOVE. NO OTHER SIGNIFICANT OR ACUTE FINDING IN THE ABDOMEN OR PELVIS ON CT SCAN WITH ORAL AND IV CONTRAST. Guidance Fluoroscopy 07/02/19 00:00 IMPRESSION: SUCCESSFUL PLACEMENT OF A 5 FR DUAL LUMEN 31 CM PICC IN THE RIGHT BASILIC VEIN. Interventional Vascular Procedure 07/02/19 00:00 IMPRESSION: SUCCESSFUL PLACEMENT OF A 5 FR DUAL LUMEN 31 CM PICC IN THE RIGHT BASILIC VEIN. PICC Line Insertion 07/02/19 00:00 IMPRESSION: SUCCESSFUL PLACEMENT OF A 5 FR DUAL LUMEN 31 CM PICC IN THE RIGHT BASILIC VEIN. Assessment and Plan - Diagnosis (1) Appendicitis Qualifiers: Appendicitis type: acute appendicitis Is this a current diagnosis for this admission?: Yes Plan: Status post laparoscopic appendectomy. Postop care per surgery. (2) Gram positive septicemia Is this a current diagnosis for this admission?: Yes Plan: She will get a PICC line and complete 2 weeks of vancomycin (3) Conjunctivitis Qualifiers: Conjunctivitis type: acute Acute conjunctivitis type: bacterial Laterality: right Qualified Code(s): H10.31 - Unspecified acute conjunctivitis, right eye Is this a current diagnosis for this admission?: Yes Plan: Erythromycin ointment to right eye for 5 days - Time Time Spent with patient: 15-24 minutes
[2019-07-02] MEDS: ERYTHROMYCIN 0.5% OPH OINTMENT 3.5 GM TUBE OD SCH ×2 (19:15→23:48)
[2019-07-02] MEDS: EZETIMIBE 10 MG TABLET PO SCH (22:01)
[2019-07-02] MEDS: ATORVASTATIN CALCIUM 80 MG TABLET PO SCH (22:01)
[2019-07-02 22:13] LABS: VANCOMYCIN,TROUGH 9.4 ug/mL (5.0-20.0)
[2019-07-03] MEDS: LEVOTHYROXINE SODIUM 0.025 MG TABLET PO SCH (05:31)
[2019-07-03] MEDS: ERYTHROMYCIN 0.5% OPH OINTMENT 3.5 GM TUBE OD SCH ×4 (05:33→23:02)
[2019-07-03] MEDS: GABAPENTIN 300 MG CAPSULE PO SCH ×3 (05:33→22:53)
[2019-07-03] MEDS: INSULIN REG, HUMAN 100 UNIT/ML 3 ML VIAL (PYX) SUBCUT SCH ×4 (07:38→22:53)
[2019-07-03] MEDS: ASPIRIN 81 MG TABLET, ENT COATED PO SCH (09:12)
[2019-07-03] MEDS: CARVEDILOL 12.5 MG TABLET PO SCH ×2 (09:12→22:54)
[2019-07-03] MEDS: DOCUSATE SODIUM 100 MG CAPSULE PO SCH ×2 (09:12→17:56)
[2019-07-03] MEDS: CAPTOPRIL 25 MG TABLET PO SCH (09:13)
[2019-07-03] MEDS: DIGOXIN 0.125 MG TABLET PO SCH (09:15)
[2019-07-03] MEDS: VANCOMYCIN HCL 1,500 MG in DEXTROSE 5%-WATER 250 ML IV SCH ×2 (09:16→22:54)
[2019-07-03] MEDS: CYCLOSPORINE 0.05% OPH EMULSIO 0.4 ML DROPERETTE OU SCH ×2 (09:17→22:55)
[2019-07-03] MEDS: FLUTICASONE/VILANTEROL 200-25 MCG/DOSE IH SCH (09:17)
--- NOTE | 2019-07-03 10:24 | PDOC PROGRESS REPORT ---
Subjective Progress Note for:: 07/03/19 Subjective:: She feels well tolerating regular diet Reason For Visit: APPENDICITIS Physical Exam Vital Signs: Temp Pulse Resp BP Pulse Ox 98.1 F 62 19 163/61 H 99 07/02/19 20:05 07/03/19 07:00 07/02/19 20:05 07/02/19 20:05 07/02/19 20:05 Intake & Output 07/02/19 07/03/19 07/04/19 06:59 06:59 06:59 Intake Total 2034 1178 Output Total 160 Balance 1874 1178 Weight 79 kg 76.6 kg General appearance: PRESENT: no acute distress Head exam: PRESENT: normocephalic Eye exam: PRESENT: EOMI Mouth exam: PRESENT: moist Neck exam: PRESENT: full ROM Respiratory exam: PRESENT: clear to auscultation wilver Cardiovascular exam: PRESENT: RRR Pulses: PRESENT: normal radial pulses, normal femoral pulses Vascular exam: PRESENT: normal capillary refill GI/Abdominal exam: PRESENT: soft Rectal exam: PRESENT: deferred Extremities exam: PRESENT: full ROM Musculoskeletal exam: PRESENT: full ROM Neurological exam: PRESENT: alert, awake, oriented to person, oriented to place Psychiatric exam: PRESENT: appropriate affect Skin exam: PRESENT: dry Results Laboratory Results: 06/29/19 06:12 07/02/19 21:42 07/02/19 21:42 Creatinine 0.94 Est GFR ( Amer) > 60 06/27/19 06/27/19 10:35 10:35 Creatine Kinase 119 Troponin I < 0.012 Impressions: Acute Abdomen Series 06/27/19 10:15 IMPRESSION: Nonspecific bowel gas pattern No focal infiltrates Abdomen/Pelvis CT 06/27/19 11:55 IMPRESSION: 1. THE APPENDIX IS SLIGHTLY THICKENED. POSSIBLE MILD PERIAPPENDICEAL INFLAMMATION. FINDINGS ARE SUGGESTIVE OF MILD EARLY APPENDICITIS. NO EVIDENCE OF PERFORATION OR ABSCESS. 2. NONOBSTRUCTING CALCULI IN THE KIDNEYS. CHRONIC SCARRING OF THE LEFT KIDNEY. 3. RIGHT ADRENAL NODULE. NONSPECIFIC. 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 4. OTHER CHRONIC FINDINGS ABOVE. NO OTHER SIGNIFICANT OR ACUTE FINDING IN THE ABDOMEN OR PELVIS ON CT SCAN WITH ORAL AND IV CONTRAST. Guidance Fluoroscopy 07/02/19 00:00 IMPRESSION: SUCCESSFUL PLACEMENT OF A 5 FR DUAL LUMEN 31 CM PICC IN THE RIGHT BASILIC VEIN. Interventional Vascular Procedure 07/02/19 00:00 IMPRESSION: SUCCESSFUL PLACEMENT OF A 5 FR DUAL LUMEN 31 CM PICC IN THE RIGHT BASILIC VEIN. PICC Line Insertion 07/02/19 00:00 IMPRESSION: SUCCESSFUL PLACEMENT OF A 5 FR DUAL LUMEN 31 CM PICC IN THE RIGHT BASILIC VEIN. Assessment & Plan - Time Time Spent with patient: 25-34 minutes - Plan Summary Plan Summary: Remains very stable no significant abdominal pain tolerating regular diet having normal bowel function will need at least 2 weeks of IV antibiotics for positive blood culture still awaiting home health
[2019-07-03] MEDS: ACETAMINOPHEN 325 MG TABLET PO PRN ×2 (16:44→22:53)
--- NOTE | 2019-07-03 18:36 | PDOC PROGRESS REPORT ---
Subjective Progress Note for:: 07/03/19 Subjective:: No adverse events overnight. No new complaints. She is been ambulating in the hallway with assistance. Appetite is good. Reason For Visit: APPENDICITIS Physical Exam Vital Signs: Temp Pulse Resp BP Pulse Ox 98.1 F 62 15 163/61 H 96 07/02/19 20:05 07/03/19 14:00 07/03/19 10:27 07/02/19 20:05 07/03/19 10:27 Intake & Output 07/02/19 07/03/19 07/04/19 06:59 06:59 06:59 Intake Total 2034 1178 240 Output Total 160 Balance 1874 1178 240 Weight 79 kg 76.6 kg General appearance: PRESENT: no acute distress, cooperative, disheveled, obese Respiratory exam: PRESENT: clear to auscultation wilver, symmetrical, unlabored. ABSENT: accessory muscle use, chest wall tenderness, crackles, prolonged expiratory phas, rhonchi, tachypnea, wheezes Cardiovascular exam: PRESENT: RRR, +S1, +S2 Pulses: PRESENT: normal carotid pulses Vascular exam: PRESENT: normal capillary refill GI/Abdominal exam: PRESENT: normal bowel sounds, soft. ABSENT: distended, guarding, rebound, tenderness Extremities exam: ABSENT: clubbing, pedal edema Musculoskeletal exam: PRESENT: normal inspection. ABSENT: deformity Neurological exam: PRESENT: alert, awake, oriented to person, oriented to place, oriented to situation Psychiatric exam: PRESENT: appropriate affect, normal mood Skin exam: PRESENT: dry, warm Results Laboratory Results: 06/29/19 06:12 07/02/19 21:42 07/02/19 21:42 Creatinine 0.94 Est GFR ( Amer) > 60 06/27/19 06/27/19 10:35 10:35 Creatine Kinase 119 Troponin I < 0.012 Impressions: Acute Abdomen Series 06/27/19 10:15 IMPRESSION: Nonspecific bowel gas pattern No focal infiltrates Abdomen/Pelvis CT 06/27/19 11:55 IMPRESSION: 1. THE APPENDIX IS SLIGHTLY THICKENED. POSSIBLE MILD PERIAPPENDICEAL INFLAM MATION. FINDINGS ARE SUGGESTIVE OF MILD EARLY APPENDICITIS. NO EVIDENCE OF PERFORATION OR ABSCESS. 2. NONOBSTRUCTING CALCULI IN THE KIDNEYS. CHRONIC SCARRING OF THE LEFT KIDNEY. 3. RIGHT ADRENAL NODULE. NONSPECIFIC. 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 4. OTHER CHRONIC FINDINGS ABOVE. NO OTHER SIGNIFICANT OR ACUTE FINDING IN THE ABDOMEN OR PELVIS ON CT SCAN WITH ORAL AND IV CONTRAST. Guidance Fluoroscopy 07/02/19 00:00 IMPRESSION: SUCCESSFUL PLACEMENT OF A 5 FR DUAL LUMEN 31 CM PICC IN THE RIGHT BASILIC VEIN. Interventional Vascular Procedure 07/02/19 00:00 IMPRESSION: SUCCESSFUL PLACEMENT OF A 5 FR DUAL LUMEN 31 CM PICC IN THE RIGHT BASILIC VEIN. PICC Line Insertion 07/02/19 00:00 IMPRESSION: SUCCESSFUL PLACEMENT OF A 5 FR DUAL LUMEN 31 CM PICC IN THE RIGHT BASILIC VEIN. Assessment and Plan - Diagnosis (1) Appendicitis Qualifiers: Appendicitis type: acute appendicitis Is this a current diagnosis for this admission?: Yes Plan: Status post laparoscopic appendectomy. Postop care per surgery. (2) Gram positive septicemia Is this a current diagnosis for this admission?: Yes Plan: We have got her set up for a PICC line, and we are trying to get her set up for outpatient antibiotics, but apparently there is a prior authorization that is required. Once we get her antibiotics authorized we can discharge her home. (3) Conjunctivitis Qualifiers: Conjunctivitis type: acute Acute conjunctivitis type: bacterial Laterality: right Qualified Code(s): H10.31 - Unspecified acute conjunctivitis, right eye Is this a current diagnosis for this admission?: Yes Plan: Erythromycin ointment to right eye for 5 days - Time Time Spent with patient: 15-24 minutes
[2019-07-03] MEDS: ATORVASTATIN CALCIUM 80 MG TABLET PO SCH (22:53)
[2019-07-03] MEDS: EZETIMIBE 10 MG TABLET PO SCH (22:54)
[2019-07-04] MEDS: GABAPENTIN 300 MG CAPSULE PO SCH ×3 (06:02→22:00)
[2019-07-04] MEDS: LEVOTHYROXINE SODIUM 0.025 MG TABLET PO SCH (06:03)
[2019-07-04] MEDS: ERYTHROMYCIN 0.5% OPH OINTMENT 3.5 GM TUBE OD SCH ×4 (06:03→23:00)
[2019-07-04] MEDS: INSULIN REG, HUMAN 100 UNIT/ML 3 ML VIAL (PYX) SUBCUT SCH ×4 (07:40→22:00)
--- NOTE | 2019-07-04 08:56 | PDOC PROGRESS REPORT ---
Subjective Progress Note for:: 07/04/19 Subjective:: up walking passing stool flatus heavenly diet no complaints Reason For Visit: APPENDICITIS Physical Exam Vital Signs: Temp Pulse Resp BP Pulse Ox 97.6 F 67 17 138/70 H 99 07/04/19 07:37 07/04/19 07:37 07/04/19 07:37 07/04/19 07:37 07/04/19 07:37 Intake & Output 07/03/19 07/04/19 07/05/19 06:59 06:59 06:59 Intake Total 1178 1608 Balance 1178 1608 Weight 76.6 kg 76 kg General appearance: PRESENT: no acute distress Head exam: PRESENT: normocephalic Eye exam: PRESENT: EOMI Mouth exam: PRESENT: moist, neck supple Neck exam: PRESENT: full ROM Respiratory exam: PRESENT: clear to auscultation wilver Cardiovascular exam: PRESENT: RRR Pulses: PRESENT: normal femoral pulses, normal dorsalis pedis pul Vascular exam: PRESENT: normal capillary refill GI/Abdominal exam: PRESENT: soft Rectal exam: PRESENT: deferred Extremities exam: PRESENT: full ROM Musculoskeletal exam: PRESENT: full ROM Neurological exam: PRESENT: alert, awake Skin exam: PRESENT: dry Results Laboratory Results: 06/29/19 06:12 07/02/19 21:42 06/27/19 06/27/19 10:35 10:35 Creatine Kinase 119 Troponin I < 0.012 Impressions: Acute Abdomen Series 06/27/19 10:15 IMPRESSION: Nonspecific bowel gas pattern No focal infiltrates Abdomen/Pelvis CT 06/27/19 11:55 IMPRESSION: 1. THE APPENDIX IS SLIGHTLY THICKENED. POSSIBLE MILD PERIAPPENDICEAL INFLAMMATION. FINDINGS ARE SUGGESTIVE OF MILD EARLY APPENDICITIS. NO EVIDENCE OF PERFORATION OR ABSCESS. 2. NONOBSTRUCTING CALCULI IN THE KIDNEYS. CHRONIC SCARRING OF THE LEFT KIDNEY. 3. RIGHT ADRENAL NODULE. NONSPECIFIC. 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 4. OTHER CHRONIC FINDINGS ABOVE. NO OTHER SIGNIFICANT OR ACUTE FINDING IN THE ABDOMEN OR PELVIS ON CT SCAN WITH ORAL AND IV CONTRAST. Guidance Fluoroscopy 07/02/19 00:00 IMPRESSION: SUCCESSFUL PLACEMENT OF A 5 FR DUAL LUMEN 31 CM PICC IN THE RIGHT BASILIC VEIN. Interventional Vascular Procedure 07/02/19 00:00 IMPRESSION: SUCCESSFUL PLACEMENT OF A 5 FR DUAL LUMEN 31 CM PICC IN THE RIGHT BASILIC VEIN. PICC Line Insertion 07/02/19 00:00 IMPRESSION: SUCCESSFUL PLACEMENT OF A 5 FR DUAL LUMEN 31 CM PICC IN THE RIGHT BASILIC VEIN. Assessment & Plan - Time Time Spent with patient: 25-34 minutes - Plan Summary Plan Summary: awaiting home health for home iv abx. pt otherwise doing well no surgical complications.
[2019-07-04] MEDS: VANCOMYCIN HCL 1,500 MG in DEXTROSE 5%-WATER 250 ML IV SCH ×2 (10:34→22:00)
[2019-07-04] MEDS: DOCUSATE SODIUM 100 MG CAPSULE PO SCH ×2 (10:34→17:12)
[2019-07-04] MEDS: DIGOXIN 0.125 MG TABLET PO SCH (10:34)
[2019-07-04] MEDS: ASPIRIN 81 MG TABLET, ENT COATED PO SCH (10:35)
[2019-07-04] MEDS: CARVEDILOL 12.5 MG TABLET PO SCH ×2 (10:35→22:00)
[2019-07-04] MEDS: CAPTOPRIL 25 MG TABLET PO SCH (10:35)
[2019-07-04] MEDS: FLUTICASONE/VILANTEROL 200-25 MCG/DOSE IH SCH (10:35)
[2019-07-04] MEDS: CYCLOSPORINE 0.05% OPH EMULSIO 0.4 ML DROPERETTE OU SCH ×2 (10:35→22:01)
--- NOTE | 2019-07-04 13:56 | PDOC PROGRESS REPORT ---
Subjective Progress Note for:: 07/04/19 Subjective:: No adverse events overnight. No new complaints. She is been ambulating in the hallway with assistance. Appetite is good. Reason For Visit: APPENDICITIS Physical Exam Vital Signs: Temp Pulse Resp BP Pulse Ox 97.6 F 67 17 138/70 H 99 07/04/19 07:37 07/04/19 07:37 07/04/19 07:37 07/04/19 07:37 07/04/19 07:37 Intake & Output 07/03/19 07/04/19 07/05/19 06:59 06:59 06:59 Intake Total 1178 1608 Balance 1178 1608 Weight 76.6 kg 76 kg General appearance: PRESENT: no acute distress, cooperative, disheveled, obese Respiratory exam: PRESENT: clear to auscultation wilver, symmetrical, unlabored. ABSENT: accessory muscle use, chest wall tenderness, crackles, prolonged expiratory phas, rhonchi, tachypnea, wheezes Cardiovascular exam: PRESENT: RRR, +S1, +S2 Pulses: PRESENT: normal carotid pulses Vascular exam: PRESENT: normal capillary refill GI/Abdominal exam: PRESENT: normal bowel sounds, soft. ABSENT: distended, guarding, rebound, tenderness Extremities exam: ABSENT: clubbing, pedal edema Musculoskeletal exam: PRESENT: normal inspection. ABSENT: deformity Neurological exam: PRESENT: alert, awake, oriented to person, oriented to place, oriented to situation Psychiatric exam: PRESENT: appropriate affect, normal mood Skin exam: PRESENT: dry, warm Results Laboratory Results: 06/29/19 06:12 07/02/19 21:42 06/29/19 12:40 Blood Blood Culture - Final NO GROWTH IN 5 DAYS 06/29/19 10:37 Blood Blood Culture - Final NO GROWTH IN 5 DAYS 06/27/19 06/27/19 10:35 10:35 Creatine Kinase 119 Troponin I < 0.012 Impressions: Acute Abdomen Series 06/27/19 10:15 IMPRESSION: Nonspecific bowel gas pattern No focal infiltrates Abdomen/Pelvis CT 06/27/19 11:55 IMPRESSION: 1. THE APPENDIX IS SLIGHTLY THICKENED. POSSIBLE MILD PERIAPPENDICEAL INFLAMMATION. FINDINGS ARE SUGGESTIVE OF MILD EARLY APPENDICITIS. NO EVIDENCE OF PERFORATION OR ABSCESS. 2. NONOBSTRUCTING CALCULI IN THE KIDNEYS. CHRONIC SCARRING OF THE LEFT KIDNEY. 3. RIGHT ADRENAL NODULE. NONSPECIFIC. 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 4. OTHER CHRONIC FINDINGS ABOVE. NO OTHER SIGNIFICANT OR ACUTE FINDING IN THE ABDOMEN OR PELVIS ON CT SCAN WITH ORAL AND IV CONTRAST. Guidance Fluoroscopy 07/02/19 00:00 IMPRESSION: SUCCESSFUL PLACEMENT OF A 5 FR DUAL LUMEN 31 CM PICC IN THE RIGHT BASILIC VEIN. Interventional Vascular Procedure 07/02/19 00:00 IMPRESSION: SUCCESSFUL PLACEMENT OF A 5 FR DUAL LUMEN 31 CM PICC IN THE RIGHT BASILIC VEIN. PICC Line Insertion 07/02/19 00:00 IMPRESSION: SUCCESSFUL PLACEMENT OF A 5 FR DUAL LUMEN 31 CM PICC IN THE RIGHT BASILIC VEIN. Assessment and Plan - Diagnosis (1) Appendicitis Qualifiers: Appendicitis type: acute appendicitis Is this a current diagnosis for this admission?: Yes Plan: Status post laparoscopic appendectomy. Postop care per surgery. (2) Gram positive septicemia Is this a current diagnosis for this admission?: Yes Plan: We have got her set up for a PICC line, and we are trying to get her set up for outpatient antibiotics, but apparently there is a prior authorization that is required. Once we get her antibiotics authorized we can discharge her home. (3) Conjunctivitis Qualifiers: Conjunctivitis type: acute Acute conjunctivitis type: bacterial Laterality: right Qualified Code(s): H10.31 - Unspecified acute conjunctivitis, right eye Is this a current diagnosis for this admission?: Yes Plan: Erythromycin ointment to right eye for 5 days - Time Time Spent with patient: 15-24 minutes
[2019-07-04] MEDS: EZETIMIBE 10 MG TABLET PO SCH (22:00)
[2019-07-04] MEDS: ATORVASTATIN CALCIUM 80 MG TABLET PO SCH (22:00)
[2019-07-04 22:16] LABS: VANCOMYCIN,TROUGH 25.1 ug/mL (5.0-20.0)
[2019-07-04] MEDS ORDERED: NORMAL SALINE 1000 ML 1,000 ML IV ONE (23:45)
[2019-07-05] MEDS: GABAPENTIN 300 MG CAPSULE PO SCH ×3 (05:02→21:45)
[2019-07-05] MEDS: ERYTHROMYCIN 0.5% OPH OINTMENT 3.5 GM TUBE OD SCH ×3 (05:02→17:26)
[2019-07-05] MEDS: LEVOTHYROXINE SODIUM 0.025 MG TABLET PO SCH (05:03)
[2019-07-05 05:53] LABS: ANION GAP 5 (5-19); BLOOD UREA NITROGEN 15 mg/dL (7-20); CALCIUM 8.6 mg/dL (8.4-10.2); CARBON DIOXIDE 27 mmol/L (22-30); CHLORIDE 110 mmol/L (98-107); GLUCOSE 161 mg/dL (75-110); POTASSIUM 4.2 mmol/L (3.6-5.0)
[2019-07-05] MEDS: INSULIN REG, HUMAN 100 UNIT/ML 3 ML VIAL (PYX) SUBCUT SCH ×4 (07:47→21:45)
[2019-07-05] MEDS ORDERED: (PENDING PHARMACY ID) (Metformin Hcl [Metformin Hcl Er] 500 MG) PO SCH (10:00)
[2019-07-05] MEDS: FLUTICASONE/VILANTEROL 200-25 MCG/DOSE IH SCH (10:01)
[2019-07-05] MEDS: CARVEDILOL 12.5 MG TABLET PO SCH ×2 (10:02→21:44)
[2019-07-05] MEDS: DIGOXIN 0.125 MG TABLET PO SCH (10:02)
[2019-07-05] MEDS: ASPIRIN 81 MG TABLET, ENT COATED PO SCH (10:02)
[2019-07-05] MEDS: CYCLOSPORINE 0.05% OPH EMULSIO 0.4 ML DROPERETTE OU SCH ×2 (10:02→21:44)
[2019-07-05] MEDS: DOCUSATE SODIUM 100 MG CAPSULE PO SCH ×2 (10:02→17:25)
[2019-07-05] MEDS: CAPTOPRIL 25 MG TABLET PO SCH (10:02)
[2019-07-05] MEDS: ACETAMINOPHEN 325 MG TABLET PO PRN (10:09)
--- NOTE | 2019-07-05 11:18 | PDOC PROGRESS REPORT ---
Subjective Progress Note for:: 07/05/19 Reason For Visit: APPENDICITIS Physical Exam Vital Signs: Temp Pulse Resp BP Pulse Ox 97.4 F 67 17 132/75 H 100 07/05/19 07:28 07/05/19 07:28 07/05/19 07:28 07/05/19 07:28 07/05/19 07:28 Intake & Output 07/04/19 07/05/19 07/06/19 06:59 06:59 06:59 Intake Total 1608 2200 Balance 1608 2200 Weight 76 kg 78.7 kg Results Laboratory Results: 06/29/19 06:12 07/05/19 04:57 07/04/19 07/05/19 21:45 04:57 Sodium 141.7 Potassium 4.2 Chloride 110 H Carbon Dioxide 27 Anion Gap 5 BUN 15 Creatinine 0.83 0.79 Est GFR ( Amer) > 60 > 60 Glucose 161 H Calcium 8.6 06/29/19 12:40 Blood Blood Culture - Final NO GROWTH IN 5 DAYS 06/29/19 10:37 Blood Blood Culture - Final NO GROWTH IN 5 DAYS 06/27/19 06/27/19 10:35 10:35 Creatine Kinase 119 Troponin I < 0.012 Impressions: Acute Abdomen Series 06/27/19 10:15 IMPRESSION: Nonspecific bowel gas pattern No focal infiltrates Abdomen/Pelvis CT 06/27/19 11:55 IMPRESSION: 1. THE APPENDIX IS SLIGHTLY THICKENED. POSSIBLE MILD PERIAPPENDICEAL INFLAMMATION. FINDINGS ARE SUGGESTIVE OF MILD EARLY APPENDICITIS. NO EVIDENCE OF PERFORATION OR ABSCESS. 2. NONOBSTRUCTING CALCULI IN THE KIDNEYS. CHRONIC SCARRING OF THE LEFT KIDNEY. 3. RIGHT ADRENAL NODULE. NONSPECIFIC. 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 4. OTHER CHRONIC FINDINGS ABOVE. NO OTHER SIGNIFICANT OR ACUTE FINDING IN THE ABDOMEN OR PELVIS ON CT SCAN WITH ORAL AND IV CONTRAST. Guidance Fluoroscopy 07/02/19 00:00 IMPRESSION: SUCCESSFUL PLACEMENT OF A 5 FR DUAL LUMEN 31 CM PICC IN THE RIGHT BASILIC VEIN. Interventional Vascular Procedure 07/02/19 00:00 IMPRESSION: SUCCESSFUL PLACEMENT OF A 5 FR DUAL LUMEN 31 CM PICC IN THE RIGHT BASILIC VEIN. PICC Line Insertion 07/02/19 00:00 IMPRESSION: SUCCESSFUL PLACEMENT OF A 5 FR DUAL LUMEN 31 CM PICC IN THE RIGHT BASILIC VEIN. Assessment & Plan - Diagnosis (1) Appendicitis Qualifiers: Appendicitis type: acute appendicitis Is this a current diagnosis for this admission?: Yes (2) Gram positive septicemia Is this a current diagnosis for this admission?: Yes - Time Time Spent with patient: Less than 15 minutes - Plan Summary Plan Summary: This is a 74-year-old female status post appendectomy. She was also found to have positive blood cultures, and has indwelling intravascular hardware (pacemaker). Medicine recommended intravenous antibiotics at home. Currently we are waiting for this to be approved/supplied. Continue with intravenous vancomycin as an inpatient. As soon as home antibiotics are approved, patient can be discharged home. She is ambulating, tolerating a diet, and is afebrile. She is recovering well from her appendectomy.
[2019-07-05] MEDS: METFORMIN HCL 500 MG TABLET PO SCH ×2 (12:02→17:25)
--- NOTE | 2019-07-05 15:33 | PDOC PROGRESS REPORT ---
Subjective Progress Note for:: 07/05/19 Subjective:: No adverse events overnight. No new complaints. She is been ambulating in the hallway with assistance. Appetite is good. Reason For Visit: APPENDICITIS Physical Exam Vital Signs: Temp Pulse Resp BP Pulse Ox 97.8 F 64 17 139/64 H 100 07/05/19 11:28 07/05/19 14:00 07/05/19 11:28 07/05/19 11:28 07/05/19 11:28 Intake & Output 07/04/19 07/05/19 07/06/19 06:59 06:59 06:59 Intake Total 1608 2200 Balance 1608 2200 Weight 76 kg 78.7 kg General appearance: PRESENT: no acute distress, cooperative, disheveled, obese Respiratory exam: PRESENT: clear to auscultation wilver, symmetrical, unlabored. ABSENT: accessory muscle use, chest wall tenderness, crackles, prolonged expiratory phas, rhonchi, tachypnea, wheezes Cardiovascular exam: PRESENT: RRR, +S1, +S2 Pulses: PRESENT: normal carotid pulses Vascular exam: PRESENT: normal capillary refill GI/Abdominal exam: PRESENT: normal bowel sounds, soft. ABSENT: distended, guarding, rebound, tenderness Extremities exam: ABSENT: clubbing, pedal edema Musculoskeletal exam: PRESENT: normal inspection. ABSENT: deformity Neurological exam: PRESENT: alert, awake, oriented to person, oriented to place, oriented to situation Psychiatric exam: PRESENT: appropriate affect, normal mood Skin exam: PRESENT: dry, warm Results Laboratory Results: 06/29/19 06:12 07/05/19 04:57 07/04/19 07/05/19 21:45 04:57 Sodium 141.7 Potassium 4.2 Chloride 110 H Carbon Dioxide 27 Anion Gap 5 BUN 15 Creatinine 0.83 0.79 Est GFR ( Amer) > 60 > 60 Glucose 161 H Calcium 8.6 06/29/19 12:40 Blood Blood Culture - Final NO GROWTH IN 5 DAYS 06/29/19 10:37 Blood Blood Culture - Final NO GROWTH IN 5 DAYS 06/27/19 06/27/19 10:35 10:35 Creatine Kinase 119 Troponin I < 0.012 Impressions: Acute Abdomen Series 06/27/19 10:15 IMPRESSION: Nonspecific bowel gas pattern No focal infiltrates Abdomen/Pelvis CT 06/27/19 11:55 IMPRESSION: 1. THE APPENDIX IS SLIGHTLY THICKENED. POSSIBLE MILD PERIAPPENDICEAL INFLAMMATION. FINDINGS ARE SUGGESTIVE OF MILD EARLY APPENDICITIS. NO EVIDENCE OF PERFORATION OR ABSCESS. 2. NONOBSTRUCTING CALCULI IN THE KIDNEYS. CHRONIC SCARRING OF THE LEFT KIDNEY. 3. RIGHT ADRENAL NODULE. NONSPECIFIC. 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 4. OTHER CHRONIC FINDINGS ABOVE. NO OTHER SIGNIFICANT OR ACUTE FINDING IN THE ABDOMEN OR PELVIS ON CT SCAN WITH ORAL AND IV CONTRAST. Guidance Fluoroscopy 07/02/19 00:00 IMPRESSION: SUCCESSFUL PLACEMENT OF A 5 FR DUAL LUMEN 31 CM PICC IN THE RIGHT BASILIC VEIN. Interventional Vascular Procedure 07/02/19 00:00 IMPRESSION: SUCCESSFUL PLACEMENT OF A 5 FR DUAL LUMEN 31 CM PICC IN THE RIGHT BASILIC VEIN. PICC Line Insertion 07/02/19 00:00 IMPRESSION: SUCCESSFUL PLACEMENT OF A 5 FR DUAL LUMEN 31 CM PICC IN THE RIGHT BASILIC VEIN. Assessment and Plan - Diagnosis (1) Appendicitis Qualifiers: Appendicitis type: acute appendicitis Is this a current diagnosis for this admission?: Yes Plan: Status post laparoscopic appendectomy. Postop care per surgery. (2) Gram positive septicemia Is this a current diagnosis for this admission?: Yes Plan: We have got her set up for a PICC line, and we are trying to get her set up for outpatient antibiotics, but apparently there is a prior authorization that is required. Once we get her antibiotics authorized we can discharge her home. (3) Conjunctivitis Qualifiers: Conjunctivitis type: acute Acute conjunctivitis type: bacterial Laterality: right Qualified Code(s): H10.31 - Unspecified acute conjunctivitis, right eye Is this a current diagnosis for this admission?: Yes Plan: Erythromycin ointment to right eye for 5 days - Time Time Spent with patient: 15-24 minutes
[2019-07-05] MEDS: VANCOMYCIN HCL 750 MG in DEXTROSE 5%-WATER 250 ML IV SCH (17:26)
[2019-07-05] MEDS: ATORVASTATIN CALCIUM 80 MG TABLET PO SCH (21:44)
[2019-07-05] MEDS: EZETIMIBE 10 MG TABLET PO SCH (21:45)
[2019-07-05] MEDS ORDERED: INSULIN GLARGINE,HUM.REC.ANLOG 1,000 UNIT/10 ML VIAL SUBCUT SCH (22:00)
[2019-07-06] MEDS: ERYTHROMYCIN 0.5% OPH OINTMENT 3.5 GM TUBE OD SCH ×4 (00:04→17:07)
[2019-07-06] MEDS: GABAPENTIN 300 MG CAPSULE PO SCH ×2 (05:19→13:27)
[2019-07-06] MEDS: VANCOMYCIN HCL 750 MG in DEXTROSE 5%-WATER 250 ML IV SCH ×2 (05:19→17:07)
[2019-07-06] MEDS: LEVOTHYROXINE SODIUM 0.025 MG TABLET PO SCH (05:21)
[2019-07-06] MEDS: INSULIN REG, HUMAN 100 UNIT/ML 3 ML VIAL (PYX) SUBCUT SCH ×3 (08:02→16:21)
--- NOTE | 2019-07-06 09:46 | PDOC PROGRESS REPORT ---
Subjective Progress Note for:: 07/06/19 Subjective:: Patient has no complaints, sitting in a chair, voiding, tolerating a diet Reason For Visit: APPENDICITIS Physical Exam Vital Signs: Temp Pulse Resp BP Pulse Ox 97.3 F 62 20 132/51 H 99 07/06/19 03:36 07/06/19 07:00 07/06/19 03:36 07/06/19 03:36 07/06/19 03:36 Intake & Output 07/05/19 07/06/19 07/07/19 06:59 06:59 06:59 Intake Total 2200 1190 Balance 2200 1190 Weight 78.7 kg 79.3 kg General appearance: PRESENT: no acute distress GI/Abdominal exam: PRESENT: other - Abdomen is completely benign. Steri-Strips still in place. Results Laboratory Results: 06/29/19 06:12 07/05/19 04:57 06/27/19 06/27/19 10:35 10:35 Creatine Kinase 119 Troponin I < 0.012 Impressions: Acute Abdomen Series 06/27/19 10:15 IMPRESSION: Nonspecific bowel gas pattern No focal infiltrates Abdomen/Pelvis CT 06/27/19 11:55 IMPRESSION: 1. THE APPENDIX IS SLIGHTLY THICKENED. POSSIBLE MILD PERIAPPENDICEAL INFLAMMATION. FINDINGS ARE SUGGESTIVE OF MILD EARLY APPENDICITIS. NO EVIDENCE OF PERFORATION OR ABSCESS. 2. NONOBSTRUCTING CALCULI IN THE KIDNEYS. CHRONIC SCARRING OF THE LEFT KIDNEY. 3. RIGHT ADRENAL NODULE. NONSPECIFIC. 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 4. OTHER CHRONIC FINDINGS ABOVE. NO OTHER SIGNIFICANT OR ACUTE FINDING IN THE ABDOMEN OR PELVIS ON CT SCAN WITH ORAL AND IV CONTRAST. Guidance Fluoroscopy 07/02/19 00:00 IMPRESSION: SUCCESSFUL PLACEMENT OF A 5 FR DUAL LUMEN 31 CM PICC IN THE RIGHT BASILIC VEIN. Interventional Vascular Procedure 07/02/19 00:00 IMPRESSION: SUCCESSFUL PLACEMENT OF A 5 FR DUAL LUMEN 31 CM PICC IN THE RIGHT BASILIC VEIN. PICC Line Insertion 07/02/19 00:00 IMPRESSION: SUCCESSFUL PLACEMENT OF A 5 FR DUAL LUMEN 31 CM PICC IN THE RIGHT BASILIC VEIN. Assessment & Plan - Diagnosis (1) Appendicitis Qualifiers: Appendicitis type: acute appendicitis Is this a current diagnosis for this admission?: Yes Plan: Impression: Patient is now a day status post exploratory laparoscopy, laparoscopic appendectomy, doing well, no complications. Postoperative course uneventful. Patient being treated for gram-positive septicemia. Recommendations: 1. We will transfer patient to the hospitalist service. This was discussed w ith Dr. Perrin and Dr. Rg 2. Patient can follow-up with [facility] if she remains local, or a surgeon of choice, as needed, when she returns to us that she uses. 3. We will sign off for now. Reconsult surgery if clinically indicated. (2) Morbid obesity Is this a current diagnosis for this admission?: Yes (3) Gram positive septicemia Is this a current diagnosis for this admission?: Yes - Time Time Spent with patient: 15-24 minutes
[2019-07-06] MEDS: ALBUTEROL SULFATE 0.083% NEB 2.5 MG/3 ML AMPUL NEB PRN (09:47)
[2019-07-06] MEDS: FLUTICASONE/VILANTEROL 200-25 MCG/DOSE IH SCH (10:00)
[2019-07-06] MEDS: CAPTOPRIL 25 MG TABLET PO SCH (10:00)
[2019-07-06] MEDS: METFORMIN HCL 500 MG TABLET PO SCH ×2 (10:01→17:09)
[2019-07-06] MEDS: CARVEDILOL 12.5 MG TABLET PO SCH (10:01)
[2019-07-06] MEDS: DOCUSATE SODIUM 100 MG CAPSULE PO SCH ×2 (10:01→17:07)
[2019-07-06] MEDS: DIGOXIN 0.125 MG TABLET PO SCH (10:01)
[2019-07-06] MEDS: ASPIRIN 81 MG TABLET, ENT COATED PO SCH (10:01)
[2019-07-06] MEDS: CYCLOSPORINE 0.05% OPH EMULSIO 0.4 ML DROPERETTE OU SCH (10:01)
--- NOTE | 2019-07-06 15:40 | PDOC DISCHARGE SUMMARY ---
Impression - Admit/DC Date/PCP Admission Date/Primary Care Provider: 06/29/19 15:06 Discharge Date: 07/06/19 - Discharge Diagnosis (1) Appendicitis Is this a current diagnosis for this admission?: Yes (2) Gram positive septicemia Is this a current diagnosis for this admission?: Yes (3) Conjunctivitis Is this a current diagnosis for this admission?: Yes - Additional Information Resuscitation Status: Full Code Discharge Diet: Cardiac, Diabetic Discharge Activity: Other - per Surgery Referrals: USHA KAPADIA MD [ACTIVE STAFF] - 07/13/19 8:45 am Home Medications: Albuterol Sulfate [Proair HFA Inhalation Aerosol 8.5 gm MDI] 1 puff IH RTQ4 06/28/19 Albuterol Sulfate [Proventil 0.5% Neb 2.5 mg/0.5 ml Vial.neb] 2.5 mg NEB RTQ4 06/28/19 Aspirin [Adult Aspirin Regimen] 81 mg PO DAILY 06/28/19 Atorvastatin Calcium [Lipitor 80 mg Tablet] 80 mg PO QHS 06/28/19 Budesonide/Formoterol Fumarate [Symbicort HFA 160-4.5 mcg Inhaler 6 gm] 1 puff IH Q12 06/28/19 Captopril [Capoten 50 mg Tablet] 1 tab PO DAILY 06/28/19 Carvedilol [Coreg 12.5 mg Tablet] 12.5 mg PO Q12 06/28/19 Cyclosporine 0.05% Oph Emulsio [Restasis 0.05% Oph Emulsion Pf 0.4 ml] 1 drop OU BID 06/28/19 Digoxin [Lanoxin 0.125 mg Tablet] 0.125 mg PO DAILY 06/28/19 Docusate Sodium [Colace] 100 mg PO BID 06/28/19 Dulaglutide [Trulicity] 0.75 mg SQ .ONCE WEEKLY 06/28/19 Ezetimibe [Zetia 10 mg Tablet] 10 mg PO QHS 06/28/19 Folic Acid 1 mg PO DAILY 06/28/19 Furosemide [Lasix 20 mg Tablet] 20 mg PO QAM 06/28/19 Gabapentin [Neurontin 300 mg Capsule] 300 mg PO Q8 06/28/19 Insulin Lispro [Humalog] 100 unit SQ .PER SLIDING SCALE PRN 06/28/19 Levothyroxine Sodium [Synthroid 0.025 mg Tablet] 0.025 mg PO DAILY 06/28/19 Linaclotide [Linzess] 290 mcg PO DAILY 06/28/19 Lipase/Protease/Amylase [Zenpep Dr 20,000 Unit Capsule] 1 each PO DAILY 06/28/19 Loratadine 10 mg PO DAILY 06/28/19 Metformin HCl [Metformin HCl ER] 500 mg PO BID 06/28/19 Montelukast Sodium [Singulair 10 mg Tablet] 10 mg PO QHS 06/28/19 Multivitamin/Iron/Folic Acid [Daily Vitamin Formula-Iron Tab] 1 each PO DAILY 06/28/19 Ondansetron HCl [Zofran 4 mg Tablet] 4 mg PO QID 06/28/19 Oxybutynin Chloride [Ditropan 5 mg Tablet] 5 mg PO TID 06/28/19 Pantoprazole Sodium 40 mg PO DAILY 06/28/19 Sodium Fluoride [Prevident 5000 Plus] 51 gm DT ASDIR PRN 06/28/19 Vancomycin HCl [Vancocin Inj 1000 mg Vial] 750 mg IV Q12A vial 07/06/19 History of Present Illiness History of Present Illness: HETAL MANUEL is a 74 year old female presenting with a 1 day history of acute onset right lower quadrant abdominal pain along with nausea and fever. Patient began to experience this pain last night and it has persisted and therefore she came in through the ER. The pain has decreased since being given narcotics. Patient had a similar episode of this pain several months ago and was apparently hospitalized and was noted with constipation on CT as per the patient's family. She was treated with Linzess. She has suffer from constipation for a number of years. She has had a colonoscopy done 3 years ago followed by another one 1 year ago and was noted with polyps on both of those colonoscopies. She does have a family history of colon cancer in her sister who in her 80s with colon cancer. Patient has noticed occasional blood per rectum with hard bowel movements in the past. 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 History of asthma but no history of cigarette smoking abuse. Hospital Course Hospital Course: She received some antibiotics and then she underwent a successful laparoscopic appendectomy. She tolerated the procedure well. She had an uncomplicated postoperative course. I think it is kept her here so long as that she had blood cultures that were positive for a Streptococcus angina gnosis. Both bottles were positive. As this was an organism could have come from an appendicitis, this was not seen as a contaminant. She had cultures redrawn on June 29 and those have come back completely negative. She has had a PICC line placed. We would like to send her home on Rocephin but she had a severe penicillin allergy and so vancomycin was chosen instead of a beta-lactam. Because the first negative culture day 1 was June 29, it means that her last day of antibiotics will be July 12, which totals 14 days of treatment, which is the recognize length of treatment for this infection. We were initially trying to get home health arranged for this patient, but her [id number] was attempting to deny it requiring a prior authorization. It was reported that it could take up to 2 weeks. However, the authorization came through sooner than expected and the patient is being discharged home with home health to continue antibiotics at her family's home and prior to her return to [place]. Physical Exam Vital Signs: Temp Pulse Resp BP Pulse Ox 97.3 F 73 18 132/51 H 96 07/06/19 03:36 07/06/19 14:00 07/06/19 09:49 07/06/19 03:36 07/06/19 09:49 Intake & Output 07/05/19 07/06/19 07/07/19 06:59 06:59 06:59 Intake Total 2200 1440 480 Balance 2200 1440 480 Weight 78.7 kg 79.3 kg General appearance: PRESENT: no acute distress, cooperative, disheveled, obese Respiratory exam: PRESENT: clear to auscultation wilver, symmetrical, unlabored. ABSENT: accessory muscle use, chest wall tenderness, crackles, prolonged expiratory phas, rhonchi, tachypnea, wheezes Cardiovascular exam: PRESENT: RRR, +S1, +S2 Pulses: PRESENT: normal carotid pulses Vascular exam: PRESENT: normal capillary refill GI/Abdominal exam: PRESENT: normal bowel sounds, soft. ABSENT: distended, guarding, rebound, tenderness Extremities exam: ABSENT: clubbing, pedal edema Musculoskeletal exam: PRESENT: normal inspection. ABSENT: deformity Neurological exam: PRESENT: alert, awake, oriented to person, oriented to place, oriented to situation Psychiatric exam: PRESENT: appropriate affect, normal mood Skin exam: PRESENT: dry, warm Results Laboratory Results: WBC 7.5 10^3/uL (4.0-10.5) 06/29/19 06:12 RBC 3.37 10^6/uL (3.72-5.28) L 06/29/19 06:12 Hgb 10.0 g/dL (12.0-15.5) L 06/29/19 06:12 Hct 29.3 % (36.0-47.0) L 06/29/19 06:12 MCV 87 fl (80-97) 06/29/19 06:12 MCH 29.8 pg (27.0-33.4) 06/29/19 06:12 MCHC 34.2 g/dL (32.0-36.0) 06/29/19 06:12 RDW 14.4 % (11.5-14.0) H 06/29/19 06:12 Plt Count 123 10^3/uL (150-450) L 06/29/19 06:12 Lymph % (Auto) Not Reportable 06/27/19 10:35 [place] % (Auto) Not Reportable 06/27/19 10:35 Eos % (Auto) Not Reportable 06/27/19 10:35 Baso % (Auto) Not Reportable 06/27/19 10:35 Absolute Neuts (auto) Not Reportable 06/27/19 10:35 Absolute Lymphs (auto) Not Reportable 06/27/19 10:35 Absolute Monos (auto) Not Reportable 06/27/19 10:35 Absolute Eos (auto) Not Reportable 06/27/19 10:35 Absolute Basos (auto) Not Reportable 06/27/19 10:35 Total Counted 100 06/27/19 10:35 Seg Neutrophils % Not Reportable 06/27/19 10:35 Seg Neuts % (Manual) 91 % (42-78) H 06/27/19 10:35 Band Neutrophils % 2 % (3-5) L 06/27/19 10:35 Lymphocytes % (Manual) 5 % (13-45) L 06/27/19 10:35 Atypical Lymphs % 1 % (0) 06/27/19 10:35 Monocytes % (Manual) 1 % (3-13) L 06/27/19 10:35 Eosinophils % (Manual) 0 % (0-6) 06/27/19 10:35 Basophils % (Manual) 0 % (0-2) 06/27/19 10:35 Abs Neuts (Manual) 8.2 10^3/uL (1.7-8.2) 06/27/19 10:35 Abs Lymphs (Manual) 0.5 10^3/uL (0.5-4.7) 06/27/19 10:35 Abs Monocytes (Manual) 0.1 10^3/uL (0.1-1.4) 06/27/19 10:35 Absolute Eos (Manual) 0.0 10^3/uL (0.0-0.6) 06/27/19 10:35 Abs Basophils (Manual) 0.0 10^3/uL (0.0-0.2) 06/27/19 10:35 Smudge Cells PRESENT 06/27/19 10:35 Toxic Vacuolation PRESENT 06/27/19 10:35 Platelet Comment ADEQUATE 06/27/19 10:35 Anisocytosis SLIGHT 06/27/19 10:35 Sodium 141.7 mmol/L (137-145) 07/05/19 04:57 Potassium 4.2 mmol/L (3.6-5.0) 07/05/19 04:57 Chloride 110 mmol/L (98-107) H 07/05/19 04:57 Carbon Dioxide 27 mmol/L (22-30) 07/05/19 04:57 Anion Gap 5 (5-19) 07/05/19 04:57 BUN 15 mg/dL (7-20) 07/05/19 04:57 Creatinine 0.79 mg/dL (0.52-1.25) 07/05/19 04:57 Est GFR ( Amer) > 60 (>60) 07/05/19 04:57 Est GFR (MDRD) Non-Af > 60 (>60) 07/05/19 04:57 Glucose 161 mg/dL (75-110) H 07/05/19 04:57 POC Glucose 183 mg/dL (70-110) H 07/06/19 12:05 Hemoglobin A1c % 7.0 % (4.7-6.0) H 06/28/19 04:36 Calcium 8.6 mg/dL (8.4-10.2) 07/05/19 04:57 Phosphorus 3.4 mg/dL (2.5-4.5) 06/28/19 04:36 Magnesium 1.8 mg/dL (1.6-2.3) 06/28/19 04:36 Total Bilirubin 0.9 mg/dL (0.2-1.3) 06/27/19 10:35 Direct Bilirubin 0.1 mg/dL (0.0-0.4) 06/27/19 10:35 Neonat Total Bilirubin Not Reportable 06/27/19 10:35 Neonat Direct Bilirubin Not Reportable 06/27/19 10:35 Neonat Indirect Bili Not Reportable 06/27/19 10:35 AST 42 U/L (14-36) H 06/27/19 10:35 ALT 26 U/L (<35) 06/27/19 10:35 Alkaline Phosphatase 100 U/L (38-126) 06/27/19 10:35 Creatine Kinase 119 U/L (30-135) 06/27/19 10:35 Troponin I < 0.012 ng/mL 06/27/19 10:35 Total Protein 7.0 g/dL (6.3-8.2) 06/27/19 10:35 Albumin 4.1 g/dL (3.5-5.0) 06/27/19 10:35 Lipase 93.7 U/L (23-300) 06/27/19 10:35 TSH 2.46 uIU/mL (0.47-4.68) 06/30/19 05:33 Free T4 1.30 ng/dL (0.78-2.19) 06/30/19 05:33 Free T3 pg/mL 3.15 pg/mL (2.77-5.27) 06/30/19 05:33 Urine Color YELLOW 06/27/19 13:40 Urine Appearance CLEAR 06/27/19 13:40 Urine pH 5.0 (5.0-9.0) 06/27/19 13:40 Ur Specific [place] 1.018 06/27/19 13:40 Urine Protein NEGATIVE mg/dL (NEGATIVE) 06/27/19 13:40 Urine Glucose (UA) NEGATIVE mg/dL (NEGATIVE) 06/27/19 13:40 Urine Ketones NEGATIVE mg/dL (NEGATIVE) 06/27/19 13:40 Urine Blood NEGATIVE (NEGATIVE) 06/27/19 13:40 Urine Nitrite NEGATIVE (NEGATIVE) 06/27/19 13:40 Urine Bilirubin NEGATIVE (NEGATIVE) 06/27/19 13:40 Urine Urobilinogen NEGATIVE mg/dL (<2.0) 06/27/19 13:40 Ur Leukocyte Esterase TRACE (NEGATIVE) H 06/27/19 13:40 Urine WBC (Auto) 3 /HPF 06/27/19 13:40 Urine RBC (Auto) 0 /HPF 06/27/19 13:40 Squamous Epi Cells Auto <1 /HPF 06/27/19 13:40 Urine Mucus (Auto) RARE /LPF 06/27/19 13:40 Urine Ascorbic Acid NEGATIVE (NEGATIVE) 06/27/19 13:40 Time Trough Drawn 214407/04/19 21:45 Vancomycin Trough 25.1 ug/mL (5.0-20.0) H 07/04/19 21:45 Digoxin 0.51 ng/mL (0.8-2.0) L 06/27/19 10:35 06/27/19 10:35 Troponin I < 0.012 Impressions: Acute Abdomen Series 06/27/19 10:15 IMPRESSION: Nonspecific bowel gas pattern No focal infiltrates Abdomen/Pelvis CT 06/27/19 11:55 IMPRESSION: 1. THE APPENDIX IS SLIGHTLY THICKENED. POSSIBLE MILD PERIAPPENDICEAL INFLAMMATION. FINDINGS ARE SUGGESTIVE OF MILD EARLY APPENDICITIS. NO EVIDENCE OF PERFORATION OR ABSCESS. 2. NONOBSTRUCTING CALCULI IN THE KIDNEYS. CHRONIC SCARRING OF THE LEFT KIDNEY. 3. RIGHT ADRENAL NODULE. NONSPECIFIC. 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 4. OTHER CHRONIC FINDINGS ABOVE. NO OTHER SIGNIFICANT OR ACUTE FINDING IN THE ABDOMEN OR PELVIS ON CT SCAN WITH ORAL AND IV CONTRAST. Guidance Fluoroscopy 07/02/19 00:00 IMPRESSION: SUCCESSFUL PLACEMENT OF A 5 FR DUAL LUMEN 31 CM PICC IN THE RIGHT BASILIC VEIN. Interventional Vascular Procedure 07/02/19 00:00 IMPRESSION: SUCCESSFUL PLACEMENT OF A 5 FR DUAL LUMEN 31 CM PICC IN THE RIGHT BASILIC VEIN. PICC Line Insertion 07/02/19 00:00 IMPRESSION: SUCCESSFUL PLACEMENT OF A 5 FR DUAL LUMEN 31 CM PICC IN THE RIGHT BASILIC VEIN. Plan Time Spent: Greater than 30 Minutes Stroke Is this a Stroke Patient?: No Acute Heart Failure - Is this a Heart Failure Patient?: No
[2019-07-06 18:48] VITALS: BP 138/51
== END 2019-07-06 19:30 | disposition home health service (06) | DRG 342 ==
LOC: ER 09:47 → EH 17:53 → INTOOBSV 17:53 → 3N 21:36 → OBSVTOIN 06-29 15:06
PROVIDERS: ADMIT Surgery; ATTEND Surgery
PROC: 0FQ04ZZ Repair Liver, Percutaneous Endoscopic Approach (ICD-10-PCS; 2019-06-27)
PROC: 0DTJ4ZZ Resection of Appendix, Percutaneous Endoscopic Approach (ICD-10-PCS; principal; 2019-06-27 18:45)
PROC: 02HV33Z Insertion of Infusion Device into Superior Vena Cava, Percutaneous Approach (ICD-10-PCS; 2019-07-02)
DX: K37 Unspecified appendicitis (principal); N39.0 Urinary tract infection, site not specified; K91.71 Accidental puncture and laceration of a digestive system organ or structure during a digestive system procedure; R78.81 Bacteremia; E11.9 Type 2 diabetes mellitus without complications; E66.01 Morbid (severe) obesity due to excess calories; B95.4 Other streptococcus as the cause of diseases classified elsewhere; H10.31 Unspecified acute conjunctivitis, right eye; Z79.82 Long term (current) use of aspirin; Z79.4 Long term (current) use of insulin; Z86.73 Personal history of transient ischemic attack (TIA), and cerebral infarction without residual deficits; Z95.0 Presence of cardiac pacemaker; I25.10 Atherosclerotic heart disease of native coronary artery without angina pectoris; Z95.5 Presence of coronary angioplasty implant and graft; J45.909 Unspecified asthma, uncomplicated; Z88.0 Allergy status to penicillin; I25.2 Old myocardial infarction; M19.90 Unspecified osteoarthritis, unspecified site; Z96.653 Presence of artificial knee joint, bilateral; K59.00 Constipation, unspecified; Y83.8 Other surgical procedures as the cause of abnormal reaction of the patient, or of later complication, without mention of misadventure at the time of the procedure; Y92.234 Operating room of hospital as the place of occurrence of the external cause; R33.9 Retention of urine, unspecified; Z68.28 Body mass index [BMI] 28.0-28.9, adult
CPT/HCPCS: 00840; 36415; 36569; 51701; 74022; 74177; 76937; 77001; 80048; 80053; 80162; 80202; 81001; 82550; 82565; 82962; 83036; 83690; 83735; 84100; 84439; 84443; 84481; 84484; 85025; 85027; 87040; 87077; 88304; 93005; 93010; 94640; 94799; 96361; 96374; 96375; 99285; G0378; J0330; J0610; J0744; J1100; J1170; J1642; J1815; J1956; J2250; J2270; J2405; J2704; J2710; J3010; J3370; J3490; J7030; J7060